=== PATIENT | female | born 1960 | race Caucasian/White ===

== ENCOUNTER 2016-04-14 20:29 | Inpatient (IN) | payer OTHER ==
[~2016-04-14] VITALS: Ht 157.5 cm; Wt 40.9 kg
[2016-04-14] MEDS ORDERED: HYDROCODONE/ACETAMOPHEN 5/325MG TAB PO STA (20:57)
--- NOTE | 2016-04-14 21:33 | DIAGNOSTIC IMAGING REPORT ---
CHEST ONE VIEW PORTABLE CLINICAL HISTORY: fall trauma. COMPARISON STUDY: No previous studies for comparison. FINDINGS: Prior median sternotomy and valve replacement. Diaphragms are smooth. Lungs are clear. IMPRESSION: No acute process. Electronically signed by: Vahid Lang M.D. 04/14/2016 9:31 PM
--- NOTE | 2016-04-14 21:34 | DIAGNOSTIC IMAGING REPORT ---
LEFT ELBOW MIN 3 VIEWS ROUTINE CLINICAL HISTORY: left elbow , fall COMPARISON: None. DISCUSSION: Nondisplaced cortical fracture proximal ulna. Joint effusion. No evidence for dislocation. There is no evidence for soft tissue swelling. IMPRESSION: Nondisplaced cortical fracture proximal ulna. Small joint effusion. No evidence of dislocation. Electronically signed by: Vahid Lang M.D. 04/14/2016 9:32 PM
--- NOTE | 2016-04-14 21:35 | DIAGNOSTIC IMAGING REPORT ---
LEFT HIP UNILATERAL 2 VIEWS CLINICAL HISTORY: fall, pain trauma. Pain. COMPARISON: None. DISCUSSION: Slightly impacted subcapital fracture left hip. No evidence dislocation. No evidence for acetabular protrusion. There is no evidence for soft tissue swelling. IMPRESSION: Slightly impacted subcapital fracture left hip. Electronically signed by: Vahid Lang M.D. 04/14/2016 9:34 PM
[2016-04-14] MEDS ORDERED: SODIUM CHLORIDE 0.9% 1000ML 1,000 ML IV STA (21:40)
[2016-04-14] MEDS ORDERED: EFAVTAB PO (21:40)
[2016-04-14] MEDS ORDERED: WARF1TAB6 PO (21:40)
[2016-04-14] MEDS ORDERED: WARF1TAB PO (21:43)
[2016-04-14] MEDS ORDERED: HYDROmorphone INJ 1 MG/ML SYR IV PRN (21:45)
[2016-04-14] MEDS ORDERED: NURSING VERBAL MED ORDER ONE (22:15)
[2016-04-14 22:54] LABS: BASO % 0.3 %; BASO ABS # 0.03 K/uL (0-0.2); COMPLETE YES; EOS % 0.1 %; HEMATOCRIT 37.5 % (37-47); IG% 0.3 %; LYMPH % 6.1 %; LYMPH ABS # 0.68 K/uL (1.2-3.4); MEAN CELL VOLUME 93.5 fL (80-100); MEAN CORPUSCULAR HEMOGLOBIN 31.2 pg (25-34); MEAN CORPUSCULAR HGB CONC 33.3 g/dl (32-36); MEAN PLATELET VOLUME 9.3 fL (7.4-10.4); MONO % 5.5 %; NEUT % 87.7 %; PLATELET COUNT 202 K/uL (130-400); RED BLOOD COUNT 4.01 M/uL (4.2-5.4); WHITE BLOOD COUNT 11.12 K/uL (4.8-10.8)
[2016-04-14 23:04] LABS: INR 1.2 (0.9-1.1); PARTIAL THROMBOPLASTIN RATIO 1.1; PROTHROMBIN TIME (PATIENT) 13.1 SECONDS (9.0-12.0)
[2016-04-14 23:15] LABS: BUN/CREATININE RATIO 14.7 (10-20); MAGNESIUM 2.4 mg/dl (1.8-2.4); POTASSIUM 3.8 mmol/L (3.5-5.1)
[2016-04-14 23:25] LABS: THYROID STIMULATING HORMONE 1.69 uIu/ml (0.300-4.500)
[2016-04-14] MEDS ORDERED: LORAZEPAM 2 MG/ML 1 ML VIAL IV PRN (23:45)
[2016-04-14] MEDS ORDERED: LACTATED RINGER'S 1000ML 1,000 ML IV ONE (23:45)
[2016-04-14] MEDS ORDERED: ONDANSETRON INJ 2 MG/ML 2 ML VIAL IV PRN (23:45)
[2016-04-14] MEDS ORDERED: hydrOXYzine HCL 10 MG TAB PO PRN (23:45)
[2016-04-14] MEDS ORDERED: HEPARIN 25000 UNIT/500 ML D5W ONE (23:54)
[2016-04-15] VITALS (7 sets, daily range): BP systolic 95–122; BP diastolic 59–75; PULSE 60–82; TEMP 36.5–37; O2SAT 96–100; Ht 157.5 cm; Wt 40.9 kg
[2016-04-15] MEDS ORDERED: HYDROmorphone INJ 0.5 MG/0.5 ML SYR ONE (00:18)
[2016-04-15] MEDS ORDERED: HEPARIN IV LOW DOSE NO BOLUS SCH (00:59)
--- NOTE | 2016-04-15 02:06 | EMERGENCY ROOM VISIT NOTE ---
History Report prepared by [place]: Richard Heaton Under the Supervision of: Dr. Elie Waters M.D. First contact with patient: 20:38 Chief Complaint: FALL Stated Complaint: FALL, LEFT HIP & LBOW PAIN History of Present Illness The patient is a 55 year old female who presents to the Emergency Room by EMS with complaints of constant left elbow and left hip pain s/p fall occurring just prior to arrival. She states that she fell down the stairs while holding her grand daughter. She did not hit her head. The patient states that movement worsens her pain. She has not been able to walk since the fall. She notes that she has a history of pelvic fractures occurring several years ago. The patient has a history of osteoporosis. Pt denies LOC, headache, visual changes, neck pain, chest pain, breathing difficulties, nausea, vomiting, abdominal pain, back pain, numbness, weakness, open wounds, active bleeding, or other complaints. Source of History: patient Onset: Just prior to arrival Position: elbow (left), other (left hip) Timing: constant Modifying Factors (Worsening): movement Associated Symptoms: No LOC Review of Systems See HPI for pertinent positives and negatives. A total of ten systems were reviewed and were otherwise negative. Past Medical & Surgical Medical Problems: (1) Osteoporosis (2) Pelvic fracture Surgical Problems: (1) S/P AVR (aortic valve replacement) Family History No pertinent family history stated. Social History Occupation Status: employed Current/Historical Medications Scheduled Tlbpacvob-Fwwfiqaxjmklx-Hiorhn (Atripla), 1 TAB PO DAILY Warfarin Sodium (Coumadin), 2 MG PO DAILY Allergies Coded Allergies: Morphine (Verified Allergy, Intermediate, hives, 04/14/16) Physical Exam Vital Signs Date Time Temp Pulse Resp B/P Pulse Ox O2 Delivery O2 Flow Rate FiO2 04/14/16 22:48 65 16 104/54 99 Room Air 04/14/16 20:38 36.8 51 20 83/49 100 Room Air Physical Exam GENERAL: Awake, alert, uncomfortable appearing, in mild distress HEAD: Normocephalic, atraumatic. No davidson sign. No raccoon eyes. EYES: Normal conjunctiva. PERRL. EARS: External ears normal. Right TM normal. Left TM normal. NOSE: Atraumatic OROPHARYNX: Lips, tongue, and mucosa unremarkable. No erythema or exudate. NECK: No tracheal deviation or JVD. No posterior midline tenderness. No step offs noted. RESPIRATORY: CTA bilaterally CARDIAC: Regular rate, normal rhythm. ABDOMEN: Inspection reveals no abnormalities. Soft, non distended. No tenderness to palpation. No hernias. BACK: No midline step offs or tenderness to palpation. Unremarkable. PELVIS: Stable to rock. SKIN: Normal. LYMPH: No adenopathy. MUSCULOSKELETAL: Abrasion over the right lower ribs. Contusion/abrasion with tenderness over the left elbow. ROM limited secondary to pain. Wrist is non- tender. Tenderness to palpation of the left hip. ROM limited to pain. Left foot , ankle and knee are non-tender. NEURO: GCS 15. Normal sensorium. No sensory or motor deficits noted. Medical Decision & Procedures ER Provider Diagnostic Interpretation: X-ray: Per my interpretation, radiologist review. LEFT HIP UNILATERAL 2 VIEWS DISCUSSION: Slightly impacted subcapital fracture left hip. No evidence dislocation. No evidence for acetabular protrusion. There is no evidence for soft tissue swelling. IMPRESSION: Slightly impacted subcapital fracture left hip. Electronically signed by: Vahid Lang M.D. LEFT ELBOW MIN 3 VIEWS ROUTINE DISCUSSION: Nondisplaced cortical fracture proximal ulna. Joint effusion. No evidence for dislocation. There is no evidence for soft tissue swelling. IMPRESSION: Nondisplaced cortical fracture proximal ulna. Small joint effusion. No evidence of dislocation. Electronically signed by: Vahid Lang M.D. CHEST ONE VIEW PORTABLE FINDINGS: Prior median sternotomy and valve replacement. Diaphragms are smooth. Lungs are clear. IMPRESSION: No acute process. Electronically signed by: Vahid Lang M.D. Laboratory Results 04/14/16 22:41 Red Blood Count 4.01, Mean Corpuscular Volume 93.5, Mean Corpuscular Hemoglobin 31.2, Mean Corpuscular Hemoglobin Concent 33.3, Mean Platelet Volume 9.3, Neutrophils (%) (Auto) 87.7, Lymphocytes (%) (Auto) 6.1, Monocytes (%) (Auto) 5.5, Eosinophils (%) (Auto) 0.1, Basophils (%) (Auto) 0.3, Neutrophils # (Auto) 9.76, Lymphocytes # (Auto) 0.68, Monocytes # (Auto) 0.61, Eosinophils # (Auto) 0.01, Basophils # (Auto) 0.03 1/2/17 22:41 Test 04/14/16 22:41 04/14/16 23:01 White Blood Count 11.12 K/uL (4.8-10.8) Red Blood Count 4.01 M/uL (4.2-5.4) Hemoglobin 12.5 g/dL (12.0-16.0) Hematocrit 37.5 % (37-47) Mean Corpuscular Volume 93.5 fL (80-100) Mean Corpuscular Hemoglobin 31.2 pg (25-34) Mean Corpuscular Hemoglobin Concent 33.3 g/dl (32-36) Platelet Count 202 K/uL (130-400) Mean Platelet Volume 9.3 fL (7.4-10.4) Neutrophils (%) (Auto) 87.7 % Lymphocytes (%) (Auto) 6.1 % Monocytes (%) (Auto) 5.5 % Eosinophils (%) (Auto) 0.1 % Basophils (%) (Auto) 0.3 % Neutrophils # (Auto) 9.76 K/uL (1.4-6.5) Lymphocytes # (Auto) 0.68 K/uL (1.2-3.4) Monocytes # (Auto) 0.61 K/uL (0.11-0.59) Eosinophils # (Auto) 0.01 K/uL (0-0.5) Basophils # (Auto) 0.03 K/uL (0-0.2) RDW Standard Deviation 50.1 fL (36.4-46.3) RDW Coefficient of Variation 14.5 % (11.5-14.5) Immature Granulocyte % (Auto) 0.3 % Immature Granulocyte # (Auto) 0.03 K/uL (0.00-0.02) Prothrombin Time 13.1 SECONDS (9.0-12.0) Prothromb Time International Ratio 1.2 (0.9-1.1) Activated Partial Thromboplast Time 27.6 SECONDS (21.0-31.0) Partial Thromboplastin Ratio 1.1 Anion Gap 8.0 mmol/L (3-11) Est Creatinine Clear Calc Drug Dose 45.0 ml/min Estimated GFR () 74.5 Estimated GFR (Non- 64.3 BUN/Creatinine Ratio 14.7 (10-20) Calcium Level 9.0 mg/dl (8.5-10.1) Magnesium Level 2.4 mg/dl (1.8-2.4) Total Bilirubin 0.3 mg/dl (0.2-1) Direct Bilirubin 0.1 mg/dl (0-0.2) Aspartate Amino Transf (AST/SGOT) 25 U/L (15-37) Alanine Aminotransferase (ALT/SGPT) 23 U/L (12-78) Alkaline Phosphatase 186 U/L (45-117) Total Protein 6.8 gm/dl (6.4-8.2) Albumin 3.6 gm/dl (3.4-5.0) 25-Hydroxy Vitamin D Total 9.1 ng/ml (30-100) Thyroid Stimulating Hormone (TSH) 1.690 uIu/ml (0.300-4.500) Lactic Acid Level 0.8 mmol/L (0.4-2.0) Laboratory results reviewed by me Medications Administered Medications (Trade) Dose Ordered Sig/[place] Route Start Time Stop Time Status Last Admin Dose Admin Acetaminophen/ Hydrocodone Bitart 1 tab 1 tab NOW STAT PO 04/14/16 20:57 04/14/16 20:59 DC 04/14/16 21:03 1 TAB Sodium Chloride (Nss 1000ml) 1,000 ml @ 125 mls/hr Q8H STAT IV 04/14/16 21:40 04/14/16 23:45 DC 04/14/16 21:40 125 MLS/HR Procedure SPLINTING: Indication: Elbow fracture The injured extremity was identified. The patient was prepped and measured for the placement of a posterior long-arm orthoglass splint. Splint applied in the standard fashion over a layer of webril and secured using an elastic bandage. Set into a position of function. Normal neurovascular status after placement verified. The patient tolerated the procedure well and the care of the splint was discussed with the patient. No complications. ECG Indication: other (fall) Rate (beats per minute): 57 Rhythm: sinus bradycardia Findings: Q waves (Inferior), no acute ischemic change, no ectopy ED Course 2054: The patient was evaluated in room C10. A complete history and physical exam was performed. 2056: Ordered [place] 5/325 Tab PO. 2139: Ordered NSS 1000 mL @ 125 mL/hr IV. 2145: Ordered Dilaudid Inj 0.5 mg IV. 2154: Upon reexamination, the patient was resting comfortably. I discussed the test results and treatment plan with her. The patient will be evaluated for further management. Medical Decision Triage Nursing notes reviewed and agree them. The patient's history was concerning for traumatic injury. Differential diagnosis: Etiologies such as fracture, dislocation, neurovascular compromise, compartment syndrome, soft tissue injury, as well as others were entertained. Physical examination: Consistent with an isolated hip injury. ER treatment provided: Oral [place] on reassessment the patient still had pain. IV lock Zofran 4mg IV Dilaudid 0.5 mg IV IV NPO Bedrest On reassessment the patient felt better. Diagnostics interpreted by me: ECG: No ischemia. The labs revealed a mild leukocytosis on CBC. Chemistry panel was unremarkable. The patient had a subtherapeutic INR. Imaging studies: Xrays as above. The patient has a hip fracture on the left side as well as the left elbow fracture. The patient was splinted. Consultation: A consultation was placed with [facility]. The case was discussed and diagnostics were reviewed. The patient was admitted for further treatment. The chart was completed utilizing [employer] Speech voice recognition software. Grammatical errors, random word insertions, pronoun errors, and incomplete sentences are an occasional consequence of this system due to software limitations, ambient noise, and hardware issues. Any formal questions or concerns about the content, text, or information contained within the body of this dictation should be directly addressed to the physician for clarification. Consults Time Called: 2149 Consulting Physician: Dr. Olea -Orthopedic Surgery Returned Call: 2154 Discussed the patient's case. The patient will be evaluated for further treatment and disposition. Impression Primary Impression: Closed left hip fracture Additional Impressions: Left elbow fracture, Contusion of left chest wall, Fall Scribe Attestation The scribe's documentation has been prepared under my direction and personally reviewed by me in its entirety. I confirm that the note above accurately reflects all work, treatment, procedures, and medical decision making performed by me. Departure Information Dispostion Being Evaluated By Surgeon Patient Instructions A Signature Page, My [facility] [place] [employer]
[2016-04-15] MEDS: HYDROCODONE/ACETAMOPHEN 5/325MG TAB ONE ×2 (02:08→02:09)
[2016-04-15] MEDS ORDERED: OXYCODONE/ACETAMINOPHEN 5-325 TAB ONE (02:11)
[2016-04-15] MEDS ORDERED: LORAZEPAM INJ 0.25 MG in SYRINGE 0.125 ML IV PRN (02:30)
[2016-04-15] MEDS ORDERED: HEPARIN 25,000 UNIT/500ML D5W 500 ML IV PRN (04:30)
[2016-04-15] MEDS ORDERED: CEFAZOLIN 1000MG/55 ML D5W IV SCH (06:00)
--- NOTE | 2016-04-15 06:20 | INTERNAL MEDICINE CONSULTATION ---
DATE OF CONSULTATION: 04/14/2016 PRIMARY CARE DOCTOR: Dr. Kar Daly from [place], [place]. Patient seen on the request of Dr. Olea for preop eval and medical management. HISTORY OF PRESENT ILLNESS: Medical history significant for HIV disease, hx CHF 2 to severe mitral regurgitation secondary to infective endocarditis sp MV repair with annuloplasty (07/2002 [facility]) sp mechanical MVR ([place], [place], 2008), osteoporosis per records. Patient is a resident of [place], [place] who has been in town for the holidays to be with her daughter and granddaughter. She was walking down the steps at her daughter's home holding her grandchild when her sweater got caught on the door lock. Patient fell down, landed on her L side. Px noted excruciating LUE and L hip pain. No chest pain, no shortness of breath, no head trauma. In the Emergency Room, the patient was found to have slightly impacted subcapital fracture, L hip and a nondisplaced cortical fracture proximal ulna with small joint effusion, no evidence of dislocation. Patient currently admitted under Orthopedic service. MEDICAL HISTORY: As above. Patient missed her Coumadin for about week last week. She claims she ran out of supplies. Has not seen her correctional sergeant, Dr. Malika Maldonado in [place], [place] for more than a year secondary to insurance issues. SURGERIES: Cholecystectomy, hysterectomy, mitral valve replacement, mechanical valve, jaw surgery. HOME MEDICATIONS: Include Coumadin, efavirenz. Patient prefers to take Coumadin (brand name) because "there shakira less blood draws with it," being a "hard stick" as she was. ALLERGIES: TO MORPHINE. FAMILY HISTORY: Heart disease. PERSONAL AND SOCIAL HISTORY: Nonsmoker, no ETOH intake, fast food restaurant employee. REVIEW OF SYSTEMS: As per HPI. All other ROS negative. FUNCTIONAL HISTORY: Denies chest pain, shortness of breath at rest or exertion. Able to do house work without problems. PHYSICAL EXAMINATION: VITAL SIGNS: Blood pressure was noted to be 104/70, pulse rate 60, RR 16, temperature 36.8, sats 99 on room air. GENERAL: Noted to be hyposthenic. No respiratory distress. Looks older for stated age. HEENT: [place] palpebral conjunctivae, dry mucosa. NECK: No JVD. Supple. CHEST: Clear to auscultation. HEART: Regular rate and rhythm. Mechanical click/murmur. ABDOMEN: Soft. EXTREMITIES: Sling on victorino LUE, tenderness L hip. NEUROLOGIC: No gross focality. LABORATORY DATA: Hemoglobin is 12.5, hematocrit 37.1, white cell count 11.12, platelets 202. Sodium 144, potassium 3.8, chloride 112, CO2 24, BUN 50, creatinine 1, glucose 106. Vitamin D was 9.1. INR was 1.2 7.2. Chest x-ray, prior median sternotomy, valve replacement, surgery done by Dr. Perez in [place]. EKG: Rate 55, sinus bradycardia, negative ischemia. ASSESSMENT: 1. Traumatic R hip fracture, R ulnar fracture known osteoporosis. 2. History of congestive heart failure as per records secondary to severe mitral regurgitation secondary to infective endocarditis sp complex repair, patch closure, perforation, MV annuloplasty at [facility] , 2002, sp mechanical MVR at a hospital in [place], [place] in 2008 on Coumadin questionable compliance. subtherapeutic INR px seems euvolemic 3. History of HIV disease, ongoing Atripla rx . 4. malnutrition, low BMI RECOMMENDATIONS: Recommend low-dose IV heparin for now for thromboembolic prevention in light of subtherapeutic INR while Coumadin on hold in preparation for surgery. TTE, Cardiology consult for preop eval Attempt to retrieve records from correctional sergeant's office in [place], Dr. Maldonado. Calcium-D supplementation. Facilitate HIV medication. Nutrition consult RE low BMI DVT prophylaxis, low-dose IV heparin for now while off Coumadin. Thank you very much for this consultation. Dr. Garcia will follow the patient's progress. Case discussed with Dr. Olea who is in agreement with the plan of care. ANGELLA
[2016-04-15 06:39] LABS: BASO % 0.4 %; BASO ABS # 0.03 K/uL (0-0.2); COMPLETE YES; EOS % 0.4 %; HEMATOCRIT 34.4 % (37-47); IG% 0.1 %; LYMPH % 9.4 %; LYMPH ABS # 0.64 K/uL (1.2-3.4); MEAN CORPUSCULAR HEMOGLOBIN 30.9 pg (25-34); MEAN CORPUSCULAR HGB CONC 32.8 g/dl (32-36); MEAN PLATELET VOLUME 9.3 fL (7.4-10.4); MONO % 8.1 %; NEUT % 81.6 %; PLATELET COUNT 177 K/uL (130-400); RED BLOOD COUNT 3.66 M/uL (4.2-5.4); WHITE BLOOD COUNT 6.79 K/uL (4.8-10.8)
[2016-04-15 06:52] LABS: PARTIAL THROMBOPLASTIN RATIO 1.5
[2016-04-15] MEDS ORDERED: HEPARIN IV BOLUS 3,000 UNIT in SYRINGE 0 ML IV ONE (07:30)
--- NOTE | 2016-04-15 08:31 | ECHOCARDIOGRAM REPORT ---
*NOTICE TO RECEIVING [employer] This information is strictly Confidential and protected under [place] law. [place] law prohibits you from making any further disclosure of this information unless further disclosure is expressly permitted by the written consent of the person to whom it pertains or is authorized by law. A general authorization for the release of medical or other information is not sufficient for this purpose. Hospital accepts no responsibility if the information is made available to any other person, INCLUDING THE PATIENT. Interpretation Summary * Name: SYD CHARLES Study Date: 04/15/2016 08:02 AM BP: 115/70 mmHg * Patient Location: [facility]\S\N286\S\2 HR: 69 * : 1960 (M/d/yyyy) Gender: Female Height: 62 in * Age: 55 yrs Ethnicity: CA Weight: 96 lb * Ordering Physician: William Cifuentes * Performed By: Maribell Cordova * * Reason For Study: CHF, MECH MVR, PREOP EVAL * BSA: 1.4 m2 * -- Conclusions -- * The left ventricle is normal in size. * Left ventricular systolic function is normal. * Ejection Fraction = 65-70%. * There is a mechanical mitral valve. * Prosthetic mitral valve peak and/or mean gradients are normal. * Doppler evidence of mitral regurgitation is normal for this valve. Procedure Details * A complete two-dimensional transthoracic echocardiogram was performed (2D, M-mode, Doppler and color flow Doppler). * The study was technically difficult. * There were technical limitations due to patient'spoor positioning Left Ventricle * The left ventricle is normal in size. * There is normal left ventricular wall thickness. * Ejection Fraction = 65-70%. * Left ventricular systolic function is normal. * The left ventricular wall motion is normal. Right Ventricle * The right ventricle is grossly normal size. * The right ventricular systolic function is normal. Atria * The left atrial size is normal. * Right atrial size is normal. * No ASD detected; PFO is not assessed. Mitral Valve * There is a mechanical mitral valve. * Prosthetic mitral valve peak and/or mean gradients are normal. * Doppler evidence of mitral regurgitation is normal for this valve. Tricuspid Valve * The tricuspid valve is not well visualized. * Significant tricuspid regurgitation is absent. Aortic Valve * The aortic valve is normal in structure and function. Pulmonic Valve * The pulmonic valve is not well visualized. * Trace pulmonic valvular regurgitation. Great Vessels * The aortic root and proximal ascending aorta are normal sized. Pericardium/Pleural * There is no pericardial effusion. MMode 2D Measurements and Calculations IVSd 0.75 cm IVSs 1.1 cm LVIDd 3.5 cm LVIDs 2.2 cm LVPWd 0.79 cm LVPWs 0.99 cm IVS/LVPW 0.95 FS 36.8 % EDV(Teich) 52.0 ml ESV(Teich) 16.8 ml EF(Teich) 67.7 % EDV(cubed) 44.1 ml ESV(cubed) 11.1 ml EF(cubed) 74.8 % % IVS thick 50.9 % % LVPW thick 24.9 % LV mass(C)d 72.8 grams LV mass(C)dI 52.0 grams/m\S\2 LV mass(C)s 60.1 grams LV mass(C)sI 43.0 grams/m\S\2 SV(Teich) 35.2 ml SI(Teich) 25.2 ml/m\S\2 SV(cubed) 33.0 ml SI(cubed) 23.5 ml/m\S\2 ACS 1.4 cm LA dimension 3.2 cm asc Aorta Diam 3.0 cm LVOT diam 1.8 cm LVOT area 2.6 cm\S\2 LVAd ap4 16.5 cm\S\2 LVLd ap4 5.2 cm EDV(MOD-sp4) 42.8 ml EDV(sp4-el) 44.6 ml LVAs ap4 8.7 cm\S\2 LVLs ap4 4.2 cm ESV(MOD-sp4) 14.9 ml ESV(sp4-el) 15.2 ml EF(MOD-sp4) 65.2 % EF(sp4-el) 66.0 % LVAd ap2 15.2 cm\S\2 LVLd ap2 5.6 cm EDV(MOD-sp2) 33.2 ml EDV(sp2-el) 34.8 ml LVAs ap2 8.6 cm\S\2 LVLs ap2 5.2 cm ESV(MOD-sp2) 12.1 ml ESV(sp2-el) 12.2 ml EF(MOD-sp2) 63.5 % EF(sp2-el) 65.0 % LVLd %diff 7.9 % EDV(MOD-bp) 39.6 ml LVLs %diff 17.8 % ESV(MOD-bp) 14.5 ml EF(MOD-bp) 63.4 % SV(MOD-sp4) 27.9 ml SI(MOD-sp4) 19.9 ml/m\S\2 SV(MOD-sp2) 21.1 ml SI(MOD-sp2) 15.1 ml/m\S\2 SV(MOD-bp) 25.1 ml SI(MOD-bp) 17.9 ml/m\S\2 SV(sp4-el) 29.4 ml SI(sp4-el) 21.0 ml/m\S\2 SV(sp2-el) 22.6 ml SI(sp2-el) 16.2 ml/m\S\2 Doppler Measurements and Calculations MV E max amna 145.6 cm/sec MV A max amna 77.1 cm/sec MV E/A 1.9 MV V2 max 172.6 cm/sec MV max PG 11.9 mmHg MV V2 mean 71.5 cm/sec MV mean PG 2.7 mmHg MV V2 VTI 49.5 cm MVA(VTI) 0.96 cm\S\2 MV dec time 0.44 sec Ao V2 max 130.3 cm/sec Ao max PG 6.8 mmHg Ao max PG (full) 3.1 mmHg CLAUDETTE(V,A) 1.9 cm\S\2 CLAUDETTE(V,D) 1.9 cm\S\2 LV V1 max PG 3.7 mmHg LV V1 mean PG 1.5 mmHg LV V1 max 95.8 cm/sec LV V1 mean 53.1 cm/sec LV V1 VTI 18.4 cm SV(LVOT) 47.8 ml SI(LVOT) 34.1 ml/m\S\2 PA V2 max 70.1 cm/sec PA max PG 2.0 mmHg PI end-d amna 70.6 cm/sec
[2016-04-15] MEDS: MULTIVITAMIN TAB PO SCH (09:03)
[2016-04-15] MEDS: CALCIUM 600MG + VIT D 400 IU TAB PO SCH ×2 (09:04→21:28)
[2016-04-15] MEDS: DOCUSATE SODIUM 100 MG CAP PO SCH ×2 (09:04→21:28)
--- NOTE | 2016-04-15 09:05 | CARDIOLOGY CONSULTATION ---
DATE OF CONSULTATION: 04/15/2016 REFERRING PHYSICIAN: Claudette roblero. REASON FOR CONSULTATION: Preoperative clearance for hip surgery. HISTORY OF PRESENT ILLNESS: This is a pleasant 55-year-old female who has a history This dictation was stopped prematurely. A second consult should be going through dictation and will be available soon. ANGELLA
[2016-04-15] MEDS: HYDROmorphone INJ 1 MG/ML SYR IV PRN (09:15)
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
[2016-04-15 13:32] LABS: PARTIAL THROMBOPLASTIN RATIO 1.4
[2016-04-15] MEDS ORDERED: FENTANYL CITRATE INJ 50 MCG/1 ML 2 ML VIAL ONE (13:59)
[2016-04-15] MEDS ORDERED: MIDAZOLAM HCL 1 MG/ML 2ML VIAL ONE (13:59)
--- NOTE | 2016-04-15 14:23 | History & Physical Bridge Note ---
H&P Re-Evaluation Bridge Note: I have examined the patient, reviewed the History & Physical and in the interval since the performance of the History & Physical I have noted the following changes of clinical significance: No changes noted
[2016-04-15] MEDS ORDERED: ONDANSETRON INJ 2 MG/ML 2 ML VIAL IV PRN ×2 (14:45→15:00)
[2016-04-15] MEDS ORDERED: ATROPINE SULFATE 0.1 MG/ML 5ML SYR IV PRN (14:45)
[2016-04-15] MEDS ORDERED: LIDOCAINE HCL 2% 2 ML VIAL (20MG/ML) ONE (14:46)
[2016-04-15] MEDS ORDERED: DEXAMETHASONE SOD INJ 4 MG/ML VIAL ONE (14:46)
[2016-04-15] MEDS ORDERED: PROPOFOL IV EMULSION 10 MG/ML 20 ML VIAL IV ONE (14:46)
[2016-04-15] MEDS ORDERED: ONDANSETRON INJ 2 MG/ML 2 ML VIAL ONE (14:46)
[2016-04-15] MEDS ORDERED: MAGNESIUM HYDROXIDE SUSP 30 ML UDC PO PRN (15:00)
[2016-04-15] MEDS ORDERED: BISACODYL 10 MG SUPP PR PRN (15:00)
[2016-04-15] MEDS ORDERED: SOD PHOSPHATE/SOD BIPHOSPHATE ENEMA 132 ML BTL PR PRN (15:00)
[2016-04-15] MEDS ORDERED: DiphenhydrAMINE HCL 50 MG/ML VIAL IV PRN (15:00)
--- NOTE | 2016-04-15 15:34 | DIAGNOSTIC IMAGING REPORT ---
INTRAOPERATIVE LEFT HIP 2 VIEWS CLINICAL HISTORY: Subcapital left hip fracture status post pinning COMPARISON STUDY: 04/14/2016 FLUOROSCOPY TIME: 53 seconds of fluoroscopic time was utilized. 2 intraoperative fluoroscopic spot images are provided. FINDINGS: There is evidence for internal fixation of the subcapital hip fracture with 3 cannulated screws. IMPRESSION: Cannulated screw fixation of a subcapital left hip fracture Electronically signed by: Ritchie Wharton M.D. 04/15/2016 3:32 PM
--- NOTE | 2016-04-15 15:51 | [facility] Post Operative Brief Note ---
Immediate Operative Summary Operative Date Apr 15, 2016. Pre-Operative Diagnosis 1. Minimally displaced subcapital left hip fracture. 2. Left nondisplaced olecranon fracture Post-Operative Diagnosis 1. Minimally displaced subcapital left hip fracture. 2. Left nondisplaced olecranon fracture Procedure(s) Performed 1. Left Hip Open Reduction Internal Fixation Subcapital Hip Fracture 2. Closed Treatment Left Olecranon Fracture Surgeon Dr. Sam Olea Communication Electronic Technician Surgeon(s) None Estimated Blood Loss 7cc Findings See Dict Specimens None per surgeon Drains None Anesthesia GLMA Complication(s) None Disposition Recovery Room / PACU
[2016-04-15] MEDS: HYDROmorphone INJ 2 MG/ML SYR/VIAL IV PRN ×4 (16:10→16:25)
--- NOTE | 2016-04-15 16:28 | OPERATIVE REPORT ---
DATE OF OPERATION: 04/15/2016 PREOPERATIVE DIAGNOSES: 1. Left minimally displaced subcapital hip fracture. 2. Left nondisplaced olecranon fracture. POSTOPERATIVE DIAGNOSIS: Same. PROCEDURE PERFORMED: 1. Open reduction internal fixation, left subcapital hip fracture. 2. Closed treatment left olecranon fracture with posterior splint and sling. SURGEON: Dr. Olea. BULK PLANT OPERATOR: None. ANESTHESIA: General LMA. SPECIMENS: None. DRAINS: None. COMPLICATIONS: None. BLOOD LOSS: 7 mL. PERTINENT HISTORY: This is a 55-year-old female who sustained a trip and fall while holding her grandchild. She protected the child; however, she landed on her left hip and her left elbow. She was able to ambulate, transferred to [facility]. Radiographs obtained of the elbow and of the hip, noting minimally displaced left subcapital hip fracture and a nondisplaced olecranon fracture. The patient was then admitted to the hospital, evaluated and cleared by the medical service and scheduled for surgery as indicated. All potential risks, benefits, complications, alternatives, rehab, potential for incomplete relief of symptoms, need for further surgery, DVT, PE, , persistent pain, swelling, scarring, weakness, neurovascular injury, wound complications, hardware failure, nonunion, malunion of bone and fracture were discussed with the patient. The patient decided to proceed with the procedure as indicated. ORIF with cannulated screws x3, left hip. PROCEDURE: The patient was taken to the operative suite, placed supine on the operating room table. The consent was reviewed and proper operative site was identified and then anesthesia was administered appropriately. Next, the patient was placed on the fracture table. The affected limb was placed to padded boot traction and the unaffected leg was placed in a well leg zuleta, flexed and abducted and slightly externally rotated. The well leg was then padded and protected. All other bony prominences were properly padded and protected. The post was padded in the peroneus. Next, the affected limb was placed under appropriate traction using the fracture table and initial reduction was performed under live fluoroscopic assistance. Next, the affected hip was then sterilely prepped and draped in usual fashion. Next, the greater trochanter of the hip was visualized under C-arm fluoroscopy. A 10 blade scalpel incision was made along the lateral aspect of the hip inferior to the greater trochanter. This incision was then carefully deepened through subcutaneous tissue. Meticulous hemostasis was achieved with electrocautery. Next, the iliotibial band was then incised with a 10 blade scalpel and appropriate bleeders were cauterized as well. Next, using live fluoroscopic assistance 7.3 mm cannulated guide pin was placed into the central aspect of the lateral femur directed into the inferior one-third of the femoral neck and head, inferior and central both confirmed with AP and lateral projections. Next, the cannulated guide was then used to place 2 further 7.3 mm cannulated screw guide pins superior anterior and superior posterior in relation to the inferiorly placed guide pin under AP and lateral live fluoroscopic assistance. Next, the guide pins were all noted to be within 5 mm of the subchondral bone on AP and lateral projections. This was then followed by measurement of the appropriate length for planned screw implantation and then the lateral cortex was drilled, this followed by countersinking of the planned screw sites followed by implantation of the 7.3 mm cannulated screws of appropriate length. This was confirmed under live fluoroscopic assistance. Next, a hand screwdriver was used to tighten the screws to fully seat the fracture and compress it confirmed using x-ray. Next, the guide pins were removed. The wound was copiously irrigated with sterile normal saline. Final x-rays obtained in both AP and lateral projections, followed by final irrigation with sterile normal saline, closure of the fascia with interrupted #1 Vicryl sutures, closure of the dermis with buried interrupted 2-0 Vicryl. The skin was then closed using skin svitlana. A sterile compressive dressing was applied. Closed treatment was performed of the left olecranon fracture of the elbow. The patient was in a posterior splint and she was maintained in a sling for closed treatment. The patient was then awakened and taken to recovery in stable condition. I attest to the content of the Intraoperative Record and any orders documented therein. Any exceptio ns are noted below.
--- NOTE | 2016-04-15 16:40 | Anesthesiology Progress Note ---
Anesthesia Post Op Note Date & Time Apr 15, 2016 at 16:39 Vital Signs Pain Intensity: 4 Vital Signs Past 12 Hours Date Time Temp Pulse Resp B/P Pulse Ox O2 Delivery O2 Flow Rate FiO2 04/15/16 16:23 74 12 04/15/16 16:23 71 12 106/62 100 04/15/16 16:18 71 14 04/15/16 16:18 71 14 112/55 100 04/15/16 16:13 73 15 123/60 100 04/15/16 16:13 71 15 04/15/16 16:08 83 17 124/52 100 04/15/16 16:08 86 17 04/15/16 16:03 74 16 04/15/16 16:03 73 16 112/65 100 04/15/16 15:58 80 13 122/66 100 04/15/16 15:58 82 13 04/15/16 15:54 110/68 04/15/16 15:53 79 15 04/15/16 15:53 87 15 83 04/15/16 15:48 90 15 119/64 100 04/15/16 15:48 36.2 90 16 114/62 99 Mask 10 04/15/16 15:48 90 15 04/15/16 13:47 Room Air 04/15/16 12:00 36.9 60 16 107/63 98 Room Air 04/15/16 09:03 37.0 60 18 100/59 96 Room Air 04/15/16 08:20 Room Air Notes Mental Status: alert / awake / arousable, participated in evaluation Pt Amnestic to Procedure: Yes Nausea / Vomiting: adequately controlled Pain: adequately controlled Airway Patency, RR, SpO2: stable & adequate BP & HR: stable & adequate Hydration State: stable & adequate Anesthetic Complications: no major complications apparent
[2016-04-15] MEDS ORDERED: BOOST PLUS VANILLA PO SCH ×2 (17:00)
[2016-04-15] MEDS: BOOST PLUS VANILLA PO SCH ×2 (17:49)
--- NOTE | 2016-04-15 18:21 | Hospitalist Progress Note ---
Hospitalist Progress Note Date of Service Apr 15, 2016. Subjective Pt evaluation today including: conversation w/ patient, physical exam, chart review, lab review, review of studies, review of inpatient medication list Patient is seen and examined at bedside. She seemed to be anxious but reports her left elbow and left hip pain is controlled. Denies any chest pain/SOB. Objective Vital Signs Date Time Temp Pulse Resp B/P Pulse Ox O2 Delivery O2 Flow Rate FiO2 04/15/16 17:45 79 18 122/75 98 Room Air 04/15/16 17:10 36.5 77 16 102/63 100 Nasal Cannula 2.0 04/15/16 16:54 71 10 95/58 100 04/15/16 16:54 69 10 04/15/16 16:49 74 12 100 04/15/16 16:49 72 12 04/15/16 16:48 105/61 04/15/16 16:44 69 11 04/15/16 16:44 69 11 100 04/15/16 16:43 105/60 04/15/16 16:40 36.3 81 12 108/62 100 Nasal Cannula 2 04/15/16 16:39 71 10 04/15/16 16:39 69 10 100 04/15/16 16:38 101/55 04/15/16 16:34 84 13 100 04/15/16 16:34 81 13 04/15/16 16:33 103/59 04/15/16 16:29 73 11 100 04/15/16 16:29 77 11 04/15/16 16:28 108/62 04/15/16 16:24 71 13 100 04/15/16 16:24 72 13 04/15/16 16:23 74 12 04/15/16 16:23 71 12 106/62 100 04/15/16 16:18 71 14 04/15/16 16:18 71 14 112/55 100 04/15/16 16:13 73 15 123/60 100 04/15/16 16:13 71 15 04/15/16 16:08 83 17 124/52 100 04/15/16 16:08 86 17 04/15/16 16:03 74 16 04/15/16 16:03 73 16 112/65 100 04/15/16 15:58 80 13 122/66 100 04/15/16 15:58 82 13 04/15/16 15:54 110/68 04/15/16 15:53 79 15 04/15/16 15:53 87 15 83 04/15/16 15:48 90 15 119/64 100 04/15/16 15:48 36.2 90 16 114/62 99 Mask 10 04/15/16 15:48 90 15 04/15/16 13:47 Room Air 04/15/16 12:00 36.9 60 16 107/63 98 Room Air 04/15/16 09:03 37.0 60 18 100/59 96 Room Air 04/15/16 08:20 Room Air 04/15/16 04:00 Room Air 04/15/16 01:53 37.0 69 18 115/70 100 Room Air 04/15/16 00:03 79 16 82/62 98 Room Air 04/14/16 22:48 65 16 104/54 99 Room Air 04/14/16 20:38 36.8 51 20 83/49 100 Room Air Physical Exam General Appearance: WD/WN, no apparent distress Eyes: normal inspection, PERRL, EOMI, sclerae normal, funduscopic exam normal ENT: normal ENT inspection, hearing grossly normal, TMs normal, pharynx normal Neck: supple, thyroid normal, no JVD, no carotid bruits, trachea midline Respiratory/Chest: chest non-tender, lungs clear, normal breath sounds, no respiratory distress, no accessory muscle use Cardiovascular: regular rate, rhythm, no edema, no gallop, no JVD, no murmur, + pertinent finding (Metallic S2) Abdomen: normal bowel sounds, non tender, soft, no organomegaly, no pulsatile mass Extremities: normal inspection, no pedal edema, no calf tenderness, normal capillary refill, + pertinent finding (Left elbow in sling, left hip mild tender ) 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, no motor/sensory deficits, alert, normal mood/affect, oriented x 3 Skin: normal color, warm/dry, no rash Lymphatic: no adenopathy Laboratory Results Last 24 Hours Test 04/14/16 22:41 04/14/16 23:01 04/15/16 06:08 04/15/16 13:05 White Blood Count 11.12 K/uL 6.79 K/uL Red Blood Count 4.01 M/uL 3.66 M/uL Hemoglobin 12.5 g/dL 11.3 g/dL Hematocrit 37.5 % 34.4 % Mean Corpuscular Volume 93.5 fL 94.0 fL Mean Corpuscular Hemoglobin 31.2 pg 30.9 pg Mean Corpuscular Hemoglobin Concent 33.3 g/dl 32.8 g/dl Platelet Count 202 K/uL 177 K/uL Mean Platelet Volume 9.3 fL 9.3 fL Neutrophils (%) (Auto) 87.7 % 81.6 % Lymphocytes (%) (Auto) 6.1 % 9.4 % Monocytes (%) (Auto) 5.5 % 8.1 % Eosinophils (%) (Auto) 0.1 % 0.4 % Basophils (%) (Auto) 0.3 % 0.4 % Neutrophils # (Auto) 9.76 K/uL 5.53 K/uL Lymphocytes # (Auto) 0.68 K/uL 0.64 K/uL Monocytes # (Auto) 0.61 K/uL 0.55 K/uL Eosinophils # (Auto) 0.01 K/uL 0.03 K/uL Basophils # (Auto) 0.03 K/uL 0.03 K/uL RDW Standard Deviation 50.1 fL 49.7 fL RDW Coefficient of Variation 14.5 % 14.4 % Immature Granulocyte % (Auto) 0.3 % 0.1 % Immature Granulocyte # (Auto) 0.03 K/uL 0.01 K/uL Prothrombin Time 13.1 SECONDS Prothromb Time International Ratio 1.2 Activated Partial Thromboplast Time 27.6 SECONDS 38.6 SECONDS 36.0 SECONDS Partial Thromboplastin Ratio 1.1 1.5 1.4 Sodium Level 144 mmol/L Potassium Level 3.8 mmol/L Chloride Level 112 mmol/L Carbon Dioxide Level 24 mmol/L Anion Gap 8.0 mmol/L Blood Urea Nitrogen 15 mg/dl Creatinine 1.00 mg/dl Est Creatinine Clear Calc Drug Dose 45.0 ml/min Estimated GFR () 74.5 Estimated GFR (Non- 64.3 BUN/Creatinine Ratio 14.7 Random Glucose 106 mg/dl Calcium Level 9.0 mg/dl Magnesium Level 2.4 mg/dl Total Bilirubin 0.3 mg/dl Direct Bilirubin 0.1 mg/dl Aspartate Amino Transf (AST/SGOT) 25 U/L Alanine Aminotransferase (ALT/SGPT) 23 U/L Alkaline Phosphatase 186 U/L Total Protein 6.8 gm/dl Albumin 3.6 gm/dl 25-Hydroxy Vitamin D Total 9.1 ng/ml Thyroid Stimulating Hormone (TSH) 1.690 uIu/ml Lactic Acid Level 0.8 mmol/L Diagnostic Results Left Hip X ray: Slightly impacted subcapital fracture left hip. Left Elbow X ray: Nondisplaced cortical fracture proximal ulna. Small joint effusion. No evidence of dislocation. CXR: No acute process. Assessment and Plan Left minimally displaced subcapital hip fracture and Left nondisplaced olecranon fracture H/O Osteoporosis After mechanical fall S/P ORIF of left hip fracture and closed treatment left olecranon fracture with posterior splint and sling. Orthopedics managing above condition Pain control Mechanical Mitral Valve: ECHO with MV which is functioning appropriately Continue IV Heparin and Coumadin Cardiology on board Obtain records from sow manager's office in [place], Dr. Maldonado. 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
[2016-04-15] MEDS: OXYCODONE/ACETAMINOPHEN 5-325 TAB PO PRN (19:24)
[2016-04-15] MEDS: CEFAZOLIN IV 1,000 MG in DEXTROSE 5% 50ML 50 ML IV SCH (21:29)
[2016-04-15] MEDS: TRAMADOL HCL 50 MG TAB PO PRN (23:15)
[2016-04-16] VITALS (8 sets, daily range): BP systolic 92–114; BP diastolic 47–67; PULSE 73–88; TEMP 36.3–37.5; O2SAT 95–98
[2016-04-16] MEDS: HYDROmorphone INJ 1 MG/ML SYR IV PRN ×3 (01:22→21:11)
[2016-04-16] MEDS: OXYCODONE/ACETAMINOPHEN 5-325 TAB PO PRN ×2 (04:58→14:39)
[2016-04-16] MEDS: CEFAZOLIN IV 1,000 MG in DEXTROSE 5% 50ML 50 ML IV SCH (05:56)
[2016-04-16 06:12] LABS: BASO % 0.3 %; BASO ABS # 0.02 K/uL (0-0.2); COMPLETE YES; EOS % 1.7 %; HEMATOCRIT 32.3 % (37-47); LYMPH % 14.2 %; LYMPH ABS # 0.93 K/uL (1.2-3.4); MEAN CELL VOLUME 94.2 fL (80-100); MEAN CORPUSCULAR HEMOGLOBIN 31.8 pg (25-34); MEAN CORPUSCULAR HGB CONC 33.7 g/dl (32-36); MEAN PLATELET VOLUME 9.2 fL (7.4-10.4); MONO % 11.9 %; NEUT % 71.9 %; PLATELET COUNT 178 K/uL (130-400); RED BLOOD COUNT 3.43 M/uL (4.2-5.4); WHITE BLOOD COUNT 6.56 K/uL (4.8-10.8)
[2016-04-16 06:47] LABS: BUN/CREATININE RATIO 10.4 (10-20); CALCIUM 8.7 mg/dl (8.5-10.1); CREATININE 1.1 mg/dl (0.60-1.20); POTASSIUM 3.7 mmol/L (3.5-5.1)
[2016-04-16] MEDS ORDERED: HEPARIN IV LOW DOSE NO BOLUS SCH (07:15)
[2016-04-16] MEDS: BOOST PLUS VANILLA PO SCH ×4 (08:00→17:45)
--- NOTE | 2016-04-16 08:41 | Anesthesiology Progress Note ---
Anesthesia Post Op Note Date & Time Apr 16, 2016 at 08:40 Vital Signs Vital Signs Past 12 Hours Date Time Temp Pulse Resp B/P Pulse Ox O2 Delivery O2 Flow Rate FiO2 04/16/16 07:45 37.5 73 20 101/59 98 Room Air 04/16/16 05:00 36.6 74 16 92/55 97 Room Air 04/16/16 04:00 Room Air 04/16/16 00:26 36.5 76 18 92/47 97 Room Air 04/16/16 00:00 Room Air Notes Mental Status: alert / awake / arousable, participated in evaluation Pt Amnestic to Procedure: Yes Nausea / Vomiting: adequately controlled Pain: adequately controlled Airway Patency, RR, SpO2: stable & adequate BP & HR: stable & adequate Hydration State: stable & adequate Anesthetic Complications: no major complications apparent
[2016-04-16] MEDS: MULTIVITAMIN TAB PO SCH (08:56)
[2016-04-16] MEDS: DOCUSATE SODIUM 100 MG CAP PO SCH ×2 (08:56→20:43)
[2016-04-16] MEDS: PANTOprazole SOD 40 MG TAB PO SCH (08:57)
[2016-04-16] MEDS: CALCIUM 600MG + VIT D 400 IU TAB PO SCH ×2 (08:57→20:43)
[2016-04-16] MEDS: HEPARIN 25,000 UNIT/500ML D5W 500 ML IV PRN ×2 (09:00→16:32)
[2016-04-16] MEDS ORDERED: MULTIVITAMIN TAB PO SCH (09:00)
[2016-04-16 09:07] LABS: INR 1.5 (0.9-1.1); PARTIAL THROMBOPLASTIN RATIO 1.5; PROTHROMBIN TIME (PATIENT) 16.2 SECONDS (9.0-12.0)
--- NOTE | 2016-04-16 10:19 | PROGRESS NOTE ---
DATE: 04/16/2016 FOLLOWUP VISIT SUBJECTIVE: The patient is a 55-year-old female who has a mechanical mitral valve that was implanted in 2008. She fell and fractured her left hip. She underwent an open fixation of her hip fracture yesterday. She has no complaints this morning. She is considering rehab options. She was started on intravenous heparin yesterday and has good hemostasis. I believe that we can restart her warfarin. At home, she was on a simple dose of 2 mg of warfarin daily 7 days a week. We will start her with 4 mg daily, and allow her INR to slowly drift up since she is in postoperative phase. The heparin should be continued until her INR is therapeutic. OBJECTIVE: GENERAL: She is alert and oriented in no acute distress. VITAL SIGNS: Blood pressure is 110/60, pulse is regular at 73. She is afebrile. HEENT: She is normocephalic. Pupils are equal and reactive to light. Extraocular muscles are intact bilaterally. NECK: The neck veins are flat. Carotids have good upstrokes bilaterally without bruits. Thyroid is nonpalpable. RESPIRATORY: Breath sounds equal bilaterally and clear to auscultation. CARDIOVASCULAR: Heart has a regular rhythm. There is a mechanical S1. PMI is in the midclavicular line. GASTROINTESTINAL: Abdomen is soft, nontender without organomegaly. EXTREMITIES: Free of edema, digital clubbing, or cyanosis. NEUROLOGIC: Grossly intact. SKIN: Warm to touch. LYMPH NODES: Negative to palpation. LABORATORY DATA: Potassium is 3.7, hemoglobin is 10.9, INR today is 1.5. IMPRESSION: 1. Status post left hip fracture. 2. Mechanical mitral valve. RECOMMENDATIONS: As outlined above, I think that her Coumadin should be restarted. She can receive 4 mg a day which is double her normal dose of 2 mg daily. Her INR, however, is 1.5 today and if she is therapeutic tomorrow she should receive warfarin 2 mg daily. The heparin can be discontinued when her INR is above 2. Otherwise, the patient is stable.
--- NOTE | 2016-04-16 14:18 | Progress Note ---
Internal Med Progress Note Date of Service: Apr 16, 2016. Provider Documentation: SUBJECTIVE: Patient is interviewed and examined at bedside. State shaving mild pain in her left hip and elbow. Denies any new symptoms. OBJECTIVE: Vital Signs-as noted below General Appearance: WD/WN, no apparent distress Eyes: normal inspection, PERRL, EOMI, sclerae normal, funduscopic exam normal ENT: normal ENT inspection, hearing grossly normal, TMs normal, pharynx normal Neck: supple, thyroid normal, no JVD, no carotid bruits, trachea midline Respiratory/Chest: chest non-tender, lungs clear, normal breath sounds, no respiratory distress, no accessory muscle use Cardiovascular: regular rate, rhythm, no edema, no gallop, no JVD, no murmur, + pertinent finding (Metallic S2) Abdomen: normal bowel sounds, non tender, soft, no organomegaly, no pulsatile mass Extremities: normal inspection, no pedal edema, no calf tenderness, normal capillary refill, + pertinent finding (Left elbow in sling, left hip mild tender ) 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 ASSESSMENT & PLAN: Left minimally displaced subcapital hip fracture and Left nondisplaced olecranon fracture H/O Osteoporosis Fracture after mechanical fall S/P ORIF of left hip fracture and closed treatment left olecranon fracture with posterior splint and sling. Orthopedics managing above condition Pain control, Bowel regimen to prevent constipation PT/OT Mechanical Mitral Valve: ECHO with MV which is functioning appropriately Appreciate Cardiology input Obtain records from airplane pilot chief's office in [place], Dr. Maldonado. 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 Stable, Currently no decompensation Vitamin D deficiency: Will start Vit D replacement H/O HIV disease Continue Atripla DVT px: On IV Heparin and Coumadin Vital Signs: Date Time Temp Pulse Resp B/P Pulse Ox O2 Delivery O2 Flow Rate FiO2 04/16/16 12:27 Room Air 04/16/16 11:30 36.9 86 18 114/63 95 Room Air 04/16/16 08:00 Room Air 04/16/16 07:45 37.5 73 20 101/59 98 Room Air 04/16/16 05:00 36.6 74 16 92/55 97 Room Air 04/16/16 04:00 Room Air 04/16/16 00:26 36.5 76 18 92/47 97 Room Air 04/16/16 00:00 Room Air 04/15/16 20:00 Room Air 04/15/16 19:53 36.6 82 18 95/60 99 Room Air 04/15/16 18:10 74 18 103/60 97 Room Air 04/15/16 17:45 79 18 122/75 98 Room Air 04/15/16 17:20 Room Air 04/15/16 17:10 36.5 77 16 102/63 100 Nasal Cannula 2.0 04/15/16 16:54 71 10 95/58 100 04/15/16 16:54 69 10 04/15/16 16:49 74 12 100 04/15/16 16:49 72 12 04/15/16 16:48 105/61 04/15/16 16:44 69 11 04/15/16 16:44 69 11 100 04/15/16 16:43 105/60 04/15/16 16:40 36.3 81 12 108/62 100 Nasal Cannula 2 04/15/16 16:39 71 10 04/15/16 16:39 69 10 100 04/15/16 16:38 101/55 04/15/16 16:34 84 13 100 04/15/16 16:34 81 13 04/15/16 16:33 103/59 04/15/16 16:29 73 11 100 04/15/16 16:29 77 11 04/15/16 16:28 108/62 04/15/16 16:24 71 13 100 04/15/16 16:24 72 13 04/15/16 16:23 74 12 04/15/16 16:23 71 12 106/62 100 04/15/16 16:18 71 14 04/15/16 16:18 71 14 112/55 100 04/15/16 16:13 73 15 123/60 100 04/15/16 16:13 71 15 04/15/16 16:08 83 17 124/52 100 04/15/16 16:08 86 17 04/15/16 16:03 74 16 04/15/16 16:03 73 16 112/65 100 04/15/16 15:58 80 13 122/66 100 04/15/16 15:58 82 13 04/15/16 15:54 110/68 04/15/16 15:53 79 15 04/15/16 15:53 87 15 83 04/15/16 15:48 90 15 119/64 100 04/15/16 15:48 36.2 90 16 114/62 99 Mask 10 04/15/16 15:48 90 15 Lab Results: Results Past 24 Hours Test 04/16/16 05:35 04/16/16 08:51 Range/Units White Blood Count 6.56 4.8-10.8 K/uL Red Blood Count 3.43 4.2-5.4 M/uL Hemoglobin 10.9 12.0-16.0 g/dL Hematocrit 32.3 37-47 % Mean Corpuscular Volume 94.2 80-100 fL Mean Corpuscular Hemoglobin 31.8 25-34 pg Mean Corpuscular Hemoglobin Concent 33.7 32-36 g/dl Platelet Count 178 130-400 K/uL Mean Platelet Volume 9.2 7.4-10.4 fL Neutrophils (%) (Auto) 71.9 % Lymphocytes (%) (Auto) 14.2 % Monocytes (%) (Auto) 11.9 % Eosinophils (%) (Auto) 1.7 % Basophils (%) (Auto) 0.3 % Neutrophils # (Auto) 4.72 1.4-6.5 K/uL Lymphocytes # (Auto) 0.93 1.2-3.4 K/uL Monocytes # (Auto) 0.78 0.11-0.59 K/uL Eosinophils # (Auto) 0.11 0-0.5 K/uL Basophils # (Auto) 0.02 0-0.2 K/uL RDW Standard Deviation 50.1 36.4-46.3 fL RDW Coefficient of Variation 14.6 11.5-14.5 % Immature Granulocyte % (Auto) 0.0 % Immature Granulocyte # (Auto) 0.00 0.00-0.02 K/uL Sodium Level 143 136-145 mmol/L Potassium Level 3.7 3.5-5.1 mmol/L Chloride Level 110 98-107 mmol/L Carbon Dioxide Level 24 21-32 mmol/L Anion Gap 9.0 3-11 mmol/L Blood Urea Nitrogen 11 7-18 mg/dl Creatinine 1.10 0.60-1.20 mg/dl Est Creatinine Clear Calc Drug Dose 46.8 ml/min Estimated GFR () 66.4 Estimated GFR (Non- 57.3 BUN/Creatinine Ratio 10.4 10-20 Random Glucose 107 70-99 mg/dl Calcium Level 8.7 8.5-10.1 mg/dl Prothrombin Time 16.2 9.0-12.0 SECONDS Prothromb Time International Ratio 1.5 0.9-1.1 Activated Partial Thromboplast Time 38.4 21.0-31.0 SECONDS Partial Thromboplastin Ratio 1.5
[2016-04-16 15:28] LABS: PARTIAL THROMBOPLASTIN RATIO 1.9
--- NOTE | 2016-04-16 15:58 | Orthopedic Progress Note ---
Orthopedic Progress Note Date of Service Apr 16, 2016. Subjective Post OP Day: 1 Reports: complaints (pain in the hip after having PT), feeling well, Denies: SOB , chest pain, nausea / vomiting Objective calves soft nontender, N/V intact, dressing C/D/I, A&O x3, toes mobile Left thigh with minimal swelling. Date Time Temp Pulse Resp B/P Pulse Ox O2 Delivery O2 Flow Rate FiO2 04/16/16 15:02 36.9 86 18 95 2.0 04/16/16 12:27 Room Air 04/16/16 11:30 36.9 86 18 114/63 95 Room Air 04/16/16 08:00 Room Air 04/16/16 07:45 37.5 73 20 101/59 98 Room Air 04/16/16 05:00 36.6 74 16 92/55 97 Room Air 04/16/16 04:00 Room Air 04/16/16 00:26 36.5 76 18 92/47 97 Room Air 04/16/16 00:00 Room Air 04/15/16 20:00 Room Air 04/15/16 19:53 36.6 82 18 95/60 99 Room Air 04/15/16 18:10 74 18 103/60 97 Room Air 04/15/16 17:45 79 18 122/75 98 Room Air 04/15/16 17:20 Room Air 04/15/16 17:10 36.5 77 16 102/63 100 Nasal Cannula 2.0 04/15/16 16:54 71 10 95/58 100 04/15/16 16:54 69 10 04/15/16 16:49 74 12 100 04/15/16 16:49 72 12 04/15/16 16:48 105/61 04/15/16 16:44 69 11 04/15/16 16:44 69 11 100 04/15/16 16:43 105/60 04/15/16 16:40 36.3 81 12 108/62 100 Nasal Cannula 2 04/15/16 16:39 71 10 04/15/16 16:39 69 10 100 04/15/16 16:38 101/55 04/15/16 16:34 84 13 100 04/15/16 16:34 81 13 04/15/16 16:33 103/59 04/15/16 16:29 73 11 100 04/15/16 16:29 77 11 04/15/16 16:28 108/62 04/15/16 16:24 71 13 100 04/15/16 16:24 72 13 04/15/16 16:23 74 12 04/15/16 16:23 71 12 106/62 100 04/15/16 16:18 71 14 04/15/16 16:18 71 14 112/55 100 04/15/16 16:13 73 15 123/60 100 04/15/16 16:13 71 15 04/15/16 16:08 83 17 124/52 100 04/15/16 16:08 86 17 04/15/16 16:03 74 16 04/15/16 16:03 73 16 112/65 100 04/15/16 15:58 80 13 122/66 100 04/15/16 15:58 82 13 04/15/16 15:54 110/68 04/15/16 15:53 79 15 04/15/16 15:53 87 15 83 Laboratory Results 24 Hours: Test 04/16/16 05:35 04/16/16 08:51 White Blood Count 6.56 K/uL Red Blood Count 3.43 M/uL Hemoglobin 10.9 g/dL Hematocrit 32.3 % Mean Corpuscular Volume 94.2 fL Mean Corpuscular Hemoglobin 31.8 pg Mean Corpuscular Hemoglobin Concent 33.7 g/dl Platelet Count 178 K/uL Mean Platelet Volume 9.2 fL Neutrophils (%) (Auto) 71.9 % Lymphocytes (%) (Auto) 14.2 % Monocytes (%) (Auto) 11.9 % Eosinophils (%) (Auto) 1.7 % Basophils (%) (Auto) 0.3 % Neutrophils # (Auto) 4.72 K/uL Lymphocytes # (Auto) 0.93 K/uL Monocytes # (Auto) 0.78 K/uL Eosinophils # (Auto) 0.11 K/uL Basophils # (Auto) 0.02 K/uL Prothromb Time International Ratio 1.5 Prothrombin Time 16.2 SECONDS Assessment & Plan Assessment: POD 1 s/p ORIF Left Subcapital Hip Fx with 7.3 Cannulated Screws. Nondisplaced Left Olecranon Fx - Splint/Sling H/O HIV Plan: PT/OT DVT Prophylaxis - Heparin/Coumadin Pain management - dc Percocet. Change to OxyIR q4h Inhouse Planning Pain Management: Percocet, Ultram, Dilaudid DVT Prophylaxis: TEDs, SCDs, Coumadin, Heparin Drip Discharge Planning Discharge Planning: uncertain
[2016-04-16] MEDS ORDERED: WARFARIN SOD 5 MG TAB PO SCH (16:00)
[2016-04-16] MEDS: WARFARIN SOD 4 MG TAB PO SCH (17:01)
[2016-04-16] MEDS: ERGOCALCIFEROL 50,000 INTER.UNIT CAP PO SCH (18:37)
[2016-04-16] MEDS: TENOFO PO SCH (19:18)
[2016-04-16] MEDS: EFAVIRENZ PO SCH (19:18)
[2016-04-16] MEDS: EMTRICITABINE PO SCH (19:18)
[2016-04-17 03:26] VITALS: BP 102/50; PULSE 75; TEMP 36.8; O2SAT 98
[2016-04-17] MEDS: HYDROmorphone INJ 1 MG/ML SYR IV PRN ×2 (03:49→22:06)
[2016-04-17 06:03] LABS: BASO % 0.6 %; BASO ABS # 0.04 K/uL (0-0.2); COMPLETE YES; EOS % 1.6 %; HEMATOCRIT 35.2 % (37-47); IG% 0.2 %; LYMPH % 10.9 %; LYMPH ABS # 0.69 K/uL (1.2-3.4); MEAN CELL VOLUME 95.4 fL (80-100); MEAN CORPUSCULAR HGB CONC 33.5 g/dl (32-36); MEAN PLATELET VOLUME 9.2 fL (7.4-10.4); MONO % 10.6 %; NEUT % 76.1 %; PLATELET COUNT 192 K/uL (130-400); RED BLOOD COUNT 3.69 M/uL (4.2-5.4); WHITE BLOOD COUNT 6.34 K/uL (4.8-10.8)
[2016-04-17 06:27] LABS: INR 1.3 (0.9-1.1); PROTHROMBIN TIME (PATIENT) 13.5 SECONDS (9.0-12.0)
[2016-04-17 06:34] LABS: BUN/CREATININE RATIO 11.6 (10-20); CALCIUM 9.8 mg/dl (8.5-10.1); CREATININE 0.99 mg/dl (0.60-1.20); POTASSIUM 3.8 mmol/L (3.5-5.1)
[2016-04-17 07:16] VITALS: BP 94/55; PULSE 90; TEMP 36.7; O2SAT 97
[2016-04-17] MEDS: HEPARIN 25,000 UNIT/500ML D5W 500 ML IV PRN ×4 (07:18→23:05)
[2016-04-17] MEDS: MULTIVITAMIN TAB PO SCH (09:39)
[2016-04-17] MEDS: BOOST PLUS VANILLA PO SCH ×4 (09:39→17:45)
[2016-04-17] MEDS: PANTOprazole SOD 40 MG TAB PO SCH (09:40)
[2016-04-17] MEDS: CALCIUM 600MG + VIT D 400 IU TAB PO SCH ×2 (09:40→20:53)
[2016-04-17] MEDS: DOCUSATE SODIUM 100 MG CAP PO SCH ×2 (09:40→20:53)
--- NOTE | 2016-04-17 10:58 | PROGRESS NOTE ---
DATE: 04/17/2016 FOLLOWUP VISIT SUBJECTIVE: The patient is a 55-year-old female with a mechanical mitral valve, who fell and had a hip fracture that required an open fixation. The surgery went well. She was restarted on her warfarin yesterday and has been continued on heparin. Her INR yesterday was 1.5 and unfortunately today it is 1.3. I started her on twice her usual daily dose of warfarin, which is 2 mg a day. She is currently on 4 mg daily, and hopefully by tomorrow she will be closer to therapeutic. She has no complaints today. OBJECTIVE: GENERAL: She is alert and oriented in no acute distress. VITAL SIGNS: Blood pressure is 115/60, pulse is regular at 70. She is afebrile. HEENT: She is normocephalic. Pupils are equal and reactive to light. Extraocular muscles are intact bilaterally. NECK: The neck veins are flat. Carotids have good upstrokes bilaterally without bruits. Thyroid is nonpalpable. RESPIRATORY: Breath sounds equal bilaterally and clear to auscultation. CARDIOVASCULAR: Heart has a regular rhythm. There is a mechanical S1. No S3, S4. GASTROINTESTINAL: Abdomen is soft, nontender without organomegaly. EXTREMITIES: Free of edema, digit clubbing, or cyanosis. NEUROLOGIC: Grossly intact. SKIN: Warm to touch. LYMPH NODES: Negative to palpation. LABORATORY DATA: INR is 1.3. IMPRESSION: 1. Status post left hip fracture. 2. Mechanical mitral valve. RECOMMENDATIONS: As outlined above, the patient should remain on heparin until her INR is closer to therapeutic range. I would continue her with 4 mg of warfarin and switch her to 2 mg daily once her INR is elevated. MTDD
[2016-04-17] MEDS: OXYCODONE HCL IR 5 MG TAB (IMMEDIATE RELEASE) PO PRN (14:33)
[2016-04-17 15:30] VITALS: O2SAT 97
[2016-04-17] MEDS: TRAMADOL HCL 50 MG TAB PO PRN (15:42)
[2016-04-17 15:44] VITALS: BP 107/67; PULSE 78; TEMP 36.5; O2SAT 98
--- NOTE | 2016-04-17 15:46 | Orthopedic Progress Note ---
Orthopedic Progress Note Date of Service Apr 17, 2016. Subjective Post OP Day: 2 Reports: feeling well Additional Notes: Having some pain but knows that will be part of the process. Discussed her dc plans. Hoping to go home with her daughter. States that her daughter will be at school for approx 8 hours a day and then home the rest of the time. We talked about the fact that she will have to be ambulating better for her to go to her daughters house unless she was planning to use a WC. She ambulated 6 feet today in PT. Discussed the possible need for [facility]SN[facility]. Pt unsure. She does not want to go to a SNF. Explained to her that this would not be a SNF but a dedicated Rehab Facility. No complaints presently. Objective calves soft nontender, N/V intact, dressing C/D/I, A&O x3, toes mobile Date Time Temp Pulse Resp B/P Pulse Ox O2 Delivery O2 Flow Rate FiO2 04/17/16 07:50 Room Air 04/17/16 07:16 36.7 90 14 94/55 97 Room Air 04/17/16 03:26 36.8 75 16 102/50 98 Room Air 04/17/16 00:00 Room Air 04/16/16 22:58 36.8 80 18 104/66 98 Room Air Laboratory Results 24 Hours: Test 04/17/16 05:38 White Blood Count 6.34 K/uL Red Blood Count 3.69 M/uL Hemoglobin 11.8 g/dL Hematocrit 35.2 % Mean Corpuscular Volume 95.4 fL Mean Corpuscular Hemoglobin 32.0 pg Mean Corpuscular Hemoglobin Concent 33.5 g/dl Platelet Count 192 K/uL Mean Platelet Volume 9.2 fL Neutrophils (%) (Auto) 76.1 % Lymphocytes (%) (Auto) 10.9 % Monocytes (%) (Auto) 10.6 % Eosinophils (%) (Auto) 1.6 % Basophils (%) (Auto) 0.6 % Neutrophils # (Auto) 4.83 K/uL Lymphocytes # (Auto) 0.69 K/uL Monocytes # (Auto) 0.67 K/uL Eosinophils # (Auto) 0.10 K/uL Basophils # (Auto) 0.04 K/uL Prothromb Time International Ratio 1.3 Prothrombin Time 13.5 SECONDS Assessment & Plan Assessment: POD 2 s/p ORIF Left Subcapital Hip Fx with 7.3 Cannulated Screws. Nondisplaced Left Olecranon Fx - Splint/Sling H/O HIV Heart Valve Replacement on chronic Coumadin Plan: PT/OT - Will need to improve her ambulation before going home. DVT Prophylaxis - Heparin/Coumadin Pain management - dc Percocet. Change to OxyIR q4h We will see how she progresses with her PT. I'd prefer that she gain a little distance to her ambulation before going home, especially since she may be home alone for approx. 8 hours. Fortunately, we will likely have a few days to get her INR up and work on her PT. Inhouse Planning Pain Management: Ultram, Dilaudid, Oxy IR DVT Prophylaxis: TEDs, SCDs, Coumadin, Heparin Drip Discharge Planning Discharge Planning: uncertain
[2016-04-17] MEDS: WARFARIN SOD 4 MG TAB PO SCH (16:02)
[2016-04-17] MEDS: TENOFO PO SCH (17:42)
[2016-04-17] MEDS: EFAVIRENZ PO SCH (17:42)
[2016-04-17] MEDS: EMTRICITABINE PO SCH (17:42)
--- NOTE | 2016-04-17 18:20 | Progress Note ---
Internal Med Progress Note Date of Service: Apr 17, 2016. Provider Documentation: SUBJECTIVE: Patient is interviewed and examined at bedside. States pain at surgical site and left elbow is controlled. Also reports constipation. Denies any chest pain, SOB. OBJECTIVE: Vital Signs-as noted below General Appearance: WD/WN, no apparent distress Eyes: normal inspection, PERRL, EOMI, sclerae normal, funduscopic exam normal ENT: normal ENT inspection, hearing grossly normal, TMs normal, pharynx normal Neck: supple, thyroid normal, no JVD, no carotid bruits, trachea midline Respiratory/Chest: chest non-tender, lungs clear, normal breath sounds, no respiratory distress, no accessory muscle use Cardiovascular: regular rate, rhythm, no edema, no gallop, no JVD, no murmur, + pertinent finding (Metallic S2) Abdomen: normal bowel sounds, non tender, soft, no organomegaly, no pulsatile mass Extremities: normal inspection, no pedal edema, no calf tenderness, normal capillary refill, + pertinent finding (Left elbow in sling, left hip mild tender ) Neurologic/Psychiatric: doughnut maker II-XII nml as tested, no motor/sensory deficits, alert, normal mood/affect, oriented x 3 Skin: normal color, warm/dry, no rash Lymphatic: no adenopathy Lab data as noted below. ASSESSMENT & PLAN: Left minimally displaced subcapital hip fracture and Left nondisplaced olecranon fracture H/O Osteoporosis Fracture after mechanical fall S/P ORIF of left hip fracture and closed treatment left olecranon fracture with posterior splint and sling, POD # 2 Orthopedics managing above condition Pain control, Continue Bowel regimen for constipation, encourage ambulation PT/OT Mechanical Mitral Valve: ECHO with MV which is functioning appropriately Cardiology following Obtain records from podopediatrician's office in [place], Dr. Maldonado. 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 Stable, Currently no decompensation Vitamin D deficiency: Continue Vit D supplements H/O HIV disease Continue Atripla DVT px: On IV Heparin and Coumadin Vital Signs: Date Time Temp Pulse Resp B/P Pulse Ox O2 Delivery O2 Flow Rate FiO2 1/5/17 15:44 36.5 78 18 107/67 98 Room Air 04/17/16 15:30 97 Room Air 04/17/16 07:50 Room Air 04/17/16 07:16 36.7 90 14 94/55 97 Room Air 04/17/16 03:26 36.8 75 16 102/50 98 Room Air 04/17/16 00:00 Room Air 04/16/16 22:58 36.8 80 18 104/66 98 Room Air Lab Results: Results Past 24 Hours Test 04/17/16 05:38 Range/Units White Blood Count 6.34 4.8-10.8 K/uL Red Blood Count 3.69 4.2-5.4 M/uL Hemoglobin 11.8 12.0-16.0 g/dL Hematocrit 35.2 37-47 % Mean Corpuscular Volume 95.4 80-100 fL Mean Corpuscular Hemoglobin 32.0 25-34 pg Mean Corpuscular Hemoglobin Concent 33.5 32-36 g/dl Platelet Count 192 130-400 K/uL Mean Platelet Volume 9.2 7.4-10.4 fL Neutrophils (%) (Auto) 76.1 % Lymphocytes (%) (Auto) 10.9 % Monocytes (%) (Auto) 10.6 % Eosinophils (%) (Auto) 1.6 % Basophils (%) (Auto) 0.6 % Neutrophils # (Auto) 4.83 1.4-6.5 K/uL Lymphocytes # (Auto) 0.69 1.2-3.4 K/uL Monocytes # (Auto) 0.67 0.11-0.59 K/uL Eosinophils # (Auto) 0.10 0-0.5 K/uL Basophils # (Auto) 0.04 0-0.2 K/uL RDW Standard Deviation 50.5 36.4-46.3 fL RDW Coefficient of Variation 14.4 11.5-14.5 % Immature Granulocyte % (Auto) 0.2 % Immature Granulocyte # (Auto) 0.01 0.00-0.02 K/uL Prothrombin Time 13.5 9.0-12.0 SECONDS Prothromb Time International Ratio 1.3 0.9-1.1 Activated Partial Thromboplast Time 53.1 21.0-31.0 SECONDS Partial Thromboplastin Ratio 2.0 Sodium Level 141 136-145 mmol/L Potassium Level 3.8 3.5-5.1 mmol/L Chloride Level 108 98-107 mmol/L Carbon Dioxide Level 26 21-32 mmol/L Anion Gap 7.0 3-11 mmol/L Blood Urea Nitrogen 11 7-18 mg/dl Creatinine 0.99 0.60-1.20 mg/dl Est Creatinine Clear Calc Drug Dose 52.0 ml/min Estimated GFR () 75.4 Estimated GFR (Non- 65.1 BUN/Creatinine Ratio 11.6 10-20 Random Glucose 123 70-99 mg/dl Calcium Level 9.8 8.5-10.1 mg/dl
[2016-04-17 23:28] VITALS: BP 105/64; PULSE 74; TEMP 36.6; O2SAT 97
[2016-04-18] MEDS: TRAMADOL HCL 50 MG TAB PO PRN ×2 (00:51→19:45)
[2016-04-18 07:00] VITALS: BP 79/39; PULSE 69; TEMP 36.7; O2SAT 97
[2016-04-18 07:05] LABS: BASO % 0.8 %; BASO ABS # 0.04 K/uL (0-0.2); COMPLETE YES; EOS % 2.7 %; HEMATOCRIT 35.9 % (37-47); IG% 0.2 %; LYMPH % 15.2 %; MEAN CELL VOLUME 94.7 fL (80-100); MEAN CORPUSCULAR HEMOGLOBIN 30.6 pg (25-34); MEAN CORPUSCULAR HGB CONC 32.3 g/dl (32-36); MEAN PLATELET VOLUME 9.2 fL (7.4-10.4); MONO % 12.4 %; NEUT % 68.7 %; PLATELET COUNT 222 K/uL (130-400); RED BLOOD COUNT 3.79 M/uL (4.2-5.4); WHITE BLOOD COUNT 5.25 K/uL (4.8-10.8)
[2016-04-18] MEDS: HEPARIN 25,000 UNIT/500ML D5W 500 ML IV PRN ×2 (07:15→19:00)
[2016-04-18 07:23] LABS: INR 1.8 (0.9-1.1); PARTIAL THROMBOPLASTIN RATIO 2.3; PROTHROMBIN TIME (PATIENT) 19.2 SECONDS (9.0-12.0)
[2016-04-18 07:38] VITALS: BP 102/63
[2016-04-18] MEDS: MULTIVITAMIN TAB PO SCH (09:35)
[2016-04-18] MEDS: BOOST PLUS VANILLA PO SCH ×4 (09:35→17:45)
[2016-04-18] MEDS: CALCIUM 600MG + VIT D 400 IU TAB PO SCH ×2 (09:35→19:44)
[2016-04-18] MEDS: DOCUSATE SODIUM 100 MG CAP PO SCH ×2 (09:35→19:44)
[2016-04-18] MEDS: PANTOprazole SOD 40 MG TAB PO SCH (09:35)
--- NOTE | 2016-04-18 09:37 | PROGRESS NOTE ---
DATE: 04/18/2016 FOLLOWUP VISIT SUBJECTIVE: The patient is a 55-year-old with a history of mechanical mitral valve, who underwent an open fixation and repair of a hip fracture. The patient has been convalescing and doing well. Her INR today is 1.8. I think by tomorrow, her INR may be therapeutic. I would continue her current dosage of warfarin 4 mg daily as well as the IV heparin until her INR is above 2. INR for a mechanical valve in the mitral position is usually run at 2.5-3.5. Otherwise, she is doing well. OBJECTIVE: VITAL SIGNS: Blood pressure is 105/60 and pulse is regular at 70 beats per minute. She is afebrile. HEENT: She is normocephalic. Pupils are equal and reactive to light. Extraocular muscles are intact bilaterally. NECK: The neck veins are flat. Carotids have good upstrokes bilaterally without bruits. Thyroid is nonpalpable. RESPIRATORY: Breath sounds equal bilaterally and clear to auscultation. CARDIOVASCULAR: Heart has a regular rhythm. Normal S1 and S2. No S3 or S4. No cardiac rubs or murmurs. GASTROINTESTINAL: Abdomen is soft and nontender without organomegaly. EXTREMITIES: Free of edema, digit clubbing, or cyanosis. NEUROLOGIC: Grossly intact. SKIN: Warm to touch. LYMPH NODES: Negative to palpation. IMPRESSION: 1. Status post left hip fracture with an open repair. 2. Mechanical mitral valve. RECOMMENDATIONS: As outlined above, the patient will continue her current dose of warfarin and should remain on heparin until her INR is therapeutic. I suspect since her INR is 1.8 today, it should be in a therapeutic range by tomorrow and hopefully then, we could do some discharge planning. [facility] CAN[facility]ER CENTERKaitlin
--- NOTE | 2016-04-18 10:19 | Orthopedic Progress Note ---
Orthopedic Progress Note Date of Service Apr 18, 2016. Subjective Post OP Day: 3 Reports: feeling well, Denies: SOB, chest pain, light headedness, nausea / vomiting Additional Notes: Ambulating in the hallway with PT. States she's feeling a little stiff this AM but otherwise feels well. Doing better with her ambulation today and able to maintain her WB status per PT. Objective calves soft nontender, N/V intact, splint C/D/I (LUE), dressing C/D/I, A&O x3, toes mobile Date Time Temp Pulse Resp B/P Pulse Ox O2 Delivery O2 Flow Rate FiO2 04/18/16 07:38 102/63 04/18/16 07:00 36.7 69 16 79/39 97 Room Air 04/17/16 23:35 Room Air 04/17/16 23:28 36.6 74 16 105/64 97 Room Air 04/17/16 15:44 36.5 78 18 107/67 98 Room Air 04/17/16 15:30 97 Room Air Laboratory Results 24 Hours: Test 04/18/16 06:45 White Blood Count 5.25 K/uL Red Blood Count 3.79 M/uL Hemoglobin 11.6 g/dL Hematocrit 35.9 % Mean Corpuscular Volume 94.7 fL Mean Corpuscular Hemoglobin 30.6 pg Mean Corpuscular Hemoglobin Concent 32.3 g/dl Platelet Count 222 K/uL Mean Platelet Volume 9.2 fL Neutrophils (%) (Auto) 68.7 % Lymphocytes (%) (Auto) 15.2 % Monocytes (%) (Auto) 12.4 % Eosinophils (%) (Auto) 2.7 % Basophils (%) (Auto) 0.8 % Neutrophils # (Auto) 3.61 K/uL Lymphocytes # (Auto) 0.80 K/uL Monocytes # (Auto) 0.65 K/uL Eosinophils # (Auto) 0.14 K/uL Basophils # (Auto) 0.04 K/uL Prothromb Time International Ratio 1.8 Prothrombin Time 19.2 SECONDS Assessment & Plan Assessment: POD 3 s/p ORIF Left Subcapital Hip Fx with 7.3 Cannulated Screws. Nondisplaced Left Olecranon Fx - Splint/Sling H/O HIV Heart Valve Replacement on chronic Coumadin Plan: PT/OT - TTWB; Ambulation improving. DVT Prophylaxis - Heparin/Coumadin Pain management - dc Percocet. Change to OxyIR q4h Continue to work on her ambulation. Waiting for INR to be therapeutic. Likely for dc tomorrow to home with Home Health Services if INR therapeutic. Inhouse Planning Pain Management: Ultram, Dilaudid, Oxy IR DVT Prophylaxis: TEDs, SCDs, Coumadin, Heparin Drip Discharge Planning Discharge Planning: uncertain
[2016-04-18 10:49] LABS: BUN/CREATININE RATIO 16.2 (10-20); CALCIUM 9.6 mg/dl (8.5-10.1); POTASSIUM 3.8 mmol/L (3.5-5.1)
[2016-04-18] MEDS: OXYCODONE HCL IR 5 MG TAB (IMMEDIATE RELEASE) PO PRN ×2 (10:58→16:40)
[2016-04-18 15:01] VITALS: BP 97/57; PULSE 81; TEMP 36.5; O2SAT 97
[2016-04-18] MEDS: WARFARIN SOD 4 MG TAB PO SCH (16:31)
[2016-04-18] MEDS: EFAVIRENZ PO SCH (16:32)
[2016-04-18] MEDS: EMTRICITABINE PO SCH (16:32)
[2016-04-18] MEDS: TENOFO PO SCH (16:32)
--- NOTE | 2016-04-18 17:12 | Progress Note ---
Internal Med Progress Note Date of Service: Apr 18, 2016. Provider Documentation: SUBJECTIVE: Patient is interviewed and examined at bedside. She states her pain is controlled. Denies any chest pain, SOB. OBJECTIVE: Vital Signs-as noted below General Appearance: WD/WN, no apparent distress Eyes: normal inspection, PERRL, EOMI, sclerae normal, funduscopic exam normal ENT: normal ENT inspection, hearing grossly normal, TMs normal, pharynx normal Neck: supple, thyroid normal, no JVD, no carotid bruits, trachea midline Respiratory/Chest: chest non-tender, lungs clear, normal breath sounds, no respiratory distress, no accessory muscle use Cardiovascular: regular rate, rhythm, no edema, no gallop, no JVD, no murmur, + pertinent finding (Metallic S2) Abdomen: normal bowel sounds, non tender, soft, no organomegaly, no pulsatile mass Extremities: normal inspection, no pedal edema, no calf tenderness, normal capillary refill, + pertinent finding (Left elbow in sling, left hip mild tender ) Neurologic/Psychiatric: take up supervisor II-XII nml as tested, no motor/sensory deficits, alert, normal mood/affect, oriented x 3 Skin: normal color, warm/dry, no rash Lymphatic: no adenopathy Lab data as noted below. ASSESSMENT & PLAN: Left minimally displaced subcapital hip fracture and Left nondisplaced olecranon fracture H/O Osteoporosis Fracture after mechanical fall S/P ORIF of left hip fracture and closed treatment left olecranon fracture with posterior splint and sling, POD # 3 Orthopedics managing above condition Pain control, Continue Bowel regimen for constipation, encourage ambulation PT/OT Patient refuses rehab placement Mechanical Mitral Valve: ECHO with MV which is functioning appropriately Cardiology following Obtain records from senior sharepoint developer's office in [place], Dr. Maldonado. 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 Stable, Currently no decompensation Vitamin D deficiency: Continue Vit D supplements H/O HIV disease Continue Atripla DVT px: On IV Heparin and Coumadin Disposition: Likely planned to be discharged tomorrow if INR is therapeutic Vital Signs: Date Time Temp Pulse Resp B/P Pulse Ox O2 Delivery O2 Flow Rate FiO2 04/18/16 15:01 36.5 81 18 97/57 97 Room Air 04/18/16 08:00 Room Air 04/18/16 07:38 102/63 04/18/16 07:00 36.7 69 16 79/39 97 Room Air 04/17/16 23:35 Room Air 04/17/16 23:28 36.6 74 16 105/64 97 Room Air Lab Results: Results Past 24 Hours Test 04/18/16 06:45 04/18/16 09:50 Range/Units White Blood Count 5.25 4.8-10.8 K/uL Red Blood Count 3.79 4.2-5.4 M/uL Hemoglobin 11.6 12.0-16.0 g/dL Hematocrit 35.9 37-47 % Mean Corpuscular Volume 94.7 80-100 fL Mean Corpuscular Hemoglobin 30.6 25-34 pg Mean Corpuscular Hemoglobin Concent 32.3 32-36 g/dl Platelet Count 222 130-400 K/uL Mean Platelet Volume 9.2 7.4-10.4 fL Neutrophils (%) (Auto) 68.7 % Lymphocytes (%) (Auto) 15.2 % Monocytes (%) (Auto) 12.4 % Eosinophils (%) (Auto) 2.7 % Basophils (%) (Auto) 0.8 % Neutrophils # (Auto) 3.61 1.4-6.5 K/uL Lymphocytes # (Auto) 0.80 1.2-3.4 K/uL Monocytes # (Auto) 0.65 0.11-0.59 K/uL Eosinophils # (Auto) 0.14 0-0.5 K/uL Basophils # (Auto) 0.04 0-0.2 K/uL RDW Standard Deviation 49.8 36.4-46.3 fL RDW Coefficient of Variation 14.4 11.5-14.5 % Immature Granulocyte % (Auto) 0.2 % Immature Granulocyte # (Auto) 0.01 0.00-0.02 K/uL Prothrombin Time 19.2 9.0-12.0 SECONDS Prothromb Time International Ratio 1.8 0.9-1.1 Activated Partial Thromboplast Time 60.1 21.0-31.0 SECONDS Partial Thromboplastin Ratio 2.3 Sodium Level 140 136-145 mmol/L Potassium Level 3.8 3.5-5.1 mmol/L Chloride Level 107 98-107 mmol/L Carbon Dioxide Level 25 21-32 mmol/L Anion Gap 8.0 3-11 mmol/L Blood Urea Nitrogen 16 7-18 mg/dl Creatinine 1.00 0.60-1.20 mg/dl Est Creatinine Clear Calc Drug Dose 51.5 ml/min Estimated GFR () 74.5 Estimated GFR (Non- 64.3 BUN/Creatinine Ratio 16.2 10-20 Random Glucose 139 70-99 mg/dl Calcium Level 9.6 8.5-10.1 mg/dl
[2016-04-18] MEDS: SENNA 8.6 MG TAB PO SCH (19:44)
[2016-04-18] MEDS ORDERED: ACETAMINOPHEN 325 MG TAB PO STA (21:54)
[2016-04-18] MEDS ORDERED: ACETAMINOPHEN 325 MG TAB PO PRN (22:00)
[2016-04-18] MEDS ORDERED: ACETAMINOPHEN 325 MG TAB ONE (22:08)
[2016-04-18 23:03] VITALS: BP 100/62; PULSE 78; TEMP 36.6; O2SAT 98
[2016-04-19 03:44] VITALS: BP 100/63; PULSE 74; TEMP 36.6; O2SAT 98
[2016-04-19 07:02] LABS: BASO % 1.5 %; BASO ABS # 0.07 K/uL (0-0.2); COMPLETE YES; HEMATOCRIT 33.8 % (37-47); IG% 0.4 %; LYMPH % 22.5 %; LYMPH ABS # 1.08 K/uL (1.2-3.4); MEAN CELL VOLUME 94.2 fL (80-100); MEAN CORPUSCULAR HEMOGLOBIN 30.9 pg (25-34); MEAN CORPUSCULAR HGB CONC 32.8 g/dl (32-36); MEAN PLATELET VOLUME 9.5 fL (7.4-10.4); MONO % 12.1 %; NEUT % 59.5 %; PLATELET COUNT 248 K/uL (130-400); RED BLOOD COUNT 3.59 M/uL (4.2-5.4); WHITE BLOOD COUNT 4.79 K/uL (4.8-10.8)
[2016-04-19 07:09] VITALS: BP 104/64; PULSE 74; TEMP 36.6; O2SAT 97
[2016-04-19 07:21] LABS: INR 2.1 (0.9-1.1); PARTIAL THROMBOPLASTIN RATIO 2.5; PROTHROMBIN TIME (PATIENT) 22.8 SECONDS (9.0-12.0)
[2016-04-19] MEDS ORDERED: NURSING VERBAL MED ORDER ONE (08:15)
[2016-04-19] MEDS: BOOST PLUS VANILLA PO SCH ×4 (08:30→17:33)
[2016-04-19] MEDS: CALCIUM 600MG + VIT D 400 IU TAB PO SCH ×2 (09:01→20:44)
[2016-04-19] MEDS: MULTIVITAMIN TAB PO SCH (09:01)
[2016-04-19] MEDS: DOCUSATE SODIUM 100 MG CAP PO SCH ×2 (09:01→20:43)
[2016-04-19] MEDS: PANTOprazole SOD 40 MG TAB PO SCH (09:01)
--- NOTE | 2016-04-19 09:31 | Orthopedic Progress Note ---
Orthopedic Progress Note Date of Service Apr 19, 2016. Subjective Post OP Day: 4 Reports: feeling well, pain controlled w PO medications, Denies: SOB, calf pain , chest pain, complaints, light headedness, nausea / vomiting Objective calves soft nontender, N/V intact, dressing C/D/I, incision C/D/I, A&O x3 elbow splint intact Date Time Temp Pulse Resp B/P Pulse Ox O2 Delivery O2 Flow Rate FiO2 04/19/16 07:09 36.6 74 18 104/64 97 Room Air 04/19/16 03:44 36.6 74 18 100/63 98 Room Air 04/18/16 23:03 36.6 78 18 100/62 98 Room Air 04/18/16 19:45 Room Air 04/18/16 15:01 36.5 81 18 97/57 97 Room Air Laboratory Results 24 Hours: Test 04/19/16 05:50 White Blood Count 4.79 K/uL Red Blood Count 3.59 M/uL Hemoglobin 11.1 g/dL Hematocrit 33.8 % Mean Corpuscular Volume 94.2 fL Mean Corpuscular Hemoglobin 30.9 pg Mean Corpuscular Hemoglobin Concent 32.8 g/dl Platelet Count 248 K/uL Mean Platelet Volume 9.5 fL Neutrophils (%) (Auto) 59.5 % Lymphocytes (%) (Auto) 22.5 % Monocytes (%) (Auto) 12.1 % Eosinophils (%) (Auto) 4.0 % Basophils (%) (Auto) 1.5 % Neutrophils # (Auto) 2.85 K/uL Lymphocytes # (Auto) 1.08 K/uL Monocytes # (Auto) 0.58 K/uL Eosinophils # (Auto) 0.19 K/uL Basophils # (Auto) 0.07 K/uL Prothromb Time International Ratio 2.1 Prothrombin Time 22.8 SECONDS Assessment & Plan Assessment: POD 4 s/p ORIF Left Subcapital Hip Fx with 7.3 Cannulated Screws. Nondisplaced Left Olecranon Fx - Splint/Sling H/O HIV Heart Valve Replacement on chronic Coumadin Plan: PT/OT - TTWB; Ambulation improving. DVT Prophylaxis - Heparin/Coumadin Pain management - dc Percocet. Change to OxyIR q4h INR now therapeutic, will discuss w/ SS poss HSNVR placement. Discharge Planning Discharge Planning: uncertain
--- NOTE | 2016-04-19 09:36 | Discharge Instructions ---
Discharge Instructions Admission Reason for Admission: Slightly Impacted Subcapital Lft Hip Fx Discharge Discharge Diagnosis / Problem: 1. Left Hip Open Reduction Internal Fixation Subcapital Hip Fracture Discharge Goals Goal(s): Decrease discomfort, Improve function, Increase independence Activity Recommendations Activity Level: Up Ad Autumn Therapies: Physical Therapy, Weight Bearing Status (TTWB) Weightbearing Status: Left toe touch . Additional Information Patient informed of condition: Yes Advance Directives: Yes DNR: No Level of Care: Acute Rehab Communicable Disease: Yes Prognosis: Stable Instructions / Follow-Up Instructions / Follow-Up [facility] DISCHARGE INSTRUCTIONS: HIP FRACTURE SELF CARE INSTRUCTIONS: A. You are to ambulate with a walker or crutches for approximately 6 weeks. B. You are TOE TOUCH WEIGHT BEARING on your operative lower extremity for at least 6 weeks. C. Wear low heeled shoes with non-slip soles D. Be sure that your floors are free of things that could trip you throw rugs, electrical cords, and small objects. Avoid wet and waxed floors, especially with crutches/walker/cane. E. Try to walk several times a day with rest periods between. F. You may shower 48 hours after surgery and get the incision area wet, but DO NOT soak or submerge incision area in water. (No baths, swimming pools, hot tubs ) You CAN shower with this on. If incision is leaking through the dressing, please call the office . H. Do NOT apply soap or any ointment/lotions directly over incision. I. You may use ice as needed to operative site. SPECIAL CARE INSTRUCTIONS: VERY IMPORTANT TO READ AND REVIEW A. You may be at risk for phlebitis or blood clots. a. Wear surgical stockings (KARINA hose) for 2 weeks after surgery to improve circulation and reduce swelling. b. If you are on Coumadin- you will have daily/weekly blood work to monitor your levels. This will be done by either your family physician/ grain merchandising manager (if you are on Coumadin chronically) versus your orthopedic surgeon. Expect a phone call the day of or the day after your blood work is drawn to adjust your dose accordingly. B. There are a few signs you need to watch for after you are home. Call [facility] at [phone] if you experience any of the following: a. If you have a temperature of 101 degrees or higher. b. Sudden increase in pain in your hip not relieved by rest or pain medication. c. Any fluid or drainage from the incision; redness of the incision. d. Shortness of breath or chest pain. B. Please call [facility] at [phone] if you have any questions or concerns about your operation or recovery. C. Call your physician if: a. Temperature is greater than 101 degrees (F). b. Pain is not relieved by prescribed pain medications. c. Increase drainage or redness from incision. d. Unanswered questions or concerns. D. Pain Medication: a. You will be prescribed pain medication upon discharge that should last till your first post-operative appointment. b. If you experience nausea and/or skin rash, discontinue this medication and contact our office for an alternative medication. c. Caution- narcotic pain medication can cause constipation. E. Remain in your splint at all times left upper extremity FOLLOW UP VISIT: Please call [facility] at [phone] to schedule a follow up appointment 10-14 days from the date of your surgery date. Current Hospital Diet Patient's current hospital diet: Regular Diet Discharge Diet Recommended Diet: Regular Diet Procedures Procedures Performed: 1. Left Hip Open Reduction Internal Fixation Subcapital Hip Fracture 2. Closed Treatment Left Olecranon Fracture Pending Studies Studies pending at discharge: no Physician Orders On Transfer Dressing Changes: dressing changes left hip as needed remain in splint left upper extremity Medical Emergencies . Who to Call and When: Medical Emergencies: If at any time you feel your situation is an emergency, please call 911 immediately. . Non-Emergent Contact Non-Emergency issues call your: Primary Care Provider, Surgeon . . "Provider Documentation" section prepared by Vahid Garcia. Core Measure Problem Core Measures: None
[2016-04-19] MEDS ORDERED: ULT50X PO (09:40)
[2016-04-19] MEDS ORDERED: RXC5 PO (09:40)
[2016-04-19] MEDS ORDERED: CLC100 PO (09:40)
--- NOTE | 2016-04-19 10:51 | Cardiology Follow-Up ---
Subjective General Date of Service: Apr 19, 2016. Chief Complaint: follow up mechanical mitral valve Pt evaluation today including: conversation w/ patient, physical exam History of Present Illness The patient is a 55 year old female seen in follow up. Patient sitting in bed without complaint. Denies pain. She is not on telemetry. Her heparin infusion was discontinued prior to my arrival. Allergies Coded Allergies: Morphine (Verified Allergy, Intermediate, hives, 04/14/16) Social History Smoking Status: Never Smoker Hx Tobacco Use In Past Year?: No Hx Alcohol Use - Type And Amou: No Hx Substance Use - Type And Am: No Physical Exam Vital Signs Last Vital Signs Documentation Date Time Temp Pulse Resp B/P Pulse Ox O2 Delivery O2 Flow Rate FiO2 04/19/16 08:06 Room Air 04/19/16 07:09 36.6 74 18 104/64 97 04/16/16 15:02 2.0 Physical Exam Constitutional: Level of Distress: NAD Neck: supple Lungs: Auscultation: pertinent finding (Clear to ausculation) Cardiovascular: Heart Auscultation: RRR, pertinent finding (crisp prosthetic valve sounds noted) Extremities: no edema Neurologic: Gait & Station: pertinent finding (no focal deficits ) Assessment and Plan Assessment and Plan Last Resulted 04/19/16 05:50 Red Blood Count 3.59, Mean Corpuscular Volume 94.2, Mean Corpuscular Hemoglobin 30.9, Mean Corpuscular Hemoglobin Concent 32.8, Mean Platelet Volume 9.5, Neutrophils (%) (Auto) 59.5, Lymphocytes (%) (Auto) 22.5, Monocytes (%) (Auto) 12.1, Eosinophils (%) (Auto) 4.0, Basophils (%) (Auto) 1.5, Neutrophils # (Auto ) 2.85, Lymphocytes # (Auto) 1.08, Monocytes # (Auto) 0.58, Eosinophils # (Auto ) 0.19, Basophils # (Auto) 0.07 Last Resulted 04/18/16 09:50 Past 24 Hours Test 04/19/16 05:50 Range/Units Prothromb Time International Ratio 2.1 H 0.9-1.1 Prothrombin Time 22.8 H 9.0-12.0 SECONDS Impression: 55 year old female who presented after a mechanical fall 1. POD 4 s/p ORIF Left Subcapital Hip Fx with 7.3 Cannulated Screws. 2. Nondisplaced Left Olecranon Fx - Splint/Sling 3. History of endocarditis, mechanical Mitral Valve replacement 4. H/o HIV for which she is on HAART therapy Plan: INR has trended up to 2.1 Goal for mechanical MVR is 2.5-3.5, but given potential for bleeding risk, it is reasonable to DC the heparin bridge (already off prior to my arrival). Continue Coumadin 4 mg until INR greater than or = to 2.5, then reduce to home dose of 2 mg daily. Patient is from [place], [place], plans to recovery locally with family for a few weeks. Recommend referral to the [facility] clinic with plan for INR on Thursday. Stable for Discharge from cardio perspective if follow up of INR can be arranged. Case discussed with Dr Garcia. Laboratory Results Last 24 Hours Test 04/19/16 05:50 White Blood Count 4.79 K/uL Red Blood Count 3.59 M/uL Hemoglobin 11.1 g/dL Hematocrit 33.8 % Mean Corpuscular Volume 94.2 fL Mean Corpuscular Hemoglobin 30.9 pg Mean Corpuscular Hemoglobin Concent 32.8 g/dl Platelet Count 248 K/uL Mean Platelet Volume 9.5 fL Neutrophils (%) (Auto) 59.5 % Lymphocytes (%) (Auto) 22.5 % Monocytes (%) (Auto) 12.1 % Eosinophils (%) (Auto) 4.0 % Basophils (%) (Auto) 1.5 % Neutrophils # (Auto) 2.85 K/uL Lymphocytes # (Auto) 1.08 K/uL Monocytes # (Auto) 0.58 K/uL Eosinophils # (Auto) 0.19 K/uL Basophils # (Auto) 0.07 K/uL RDW Standard Deviation 48.6 fL RDW Coefficient of Variation 14.1 % Immature Granulocyte % (Auto) 0.4 % Immature Granulocyte # (Auto) 0.02 K/uL Prothrombin Time 22.8 SECONDS Prothromb Time International Ratio 2.1 Activated Partial Thromboplast Time 66.1 SECONDS Partial Thromboplastin Ratio 2.5
--- NOTE | 2016-04-19 11:12 | Cardiology Progress Note ---
Cardiology Progress Note Patient has decided to remain in hospital pending when a rehab bed becomes available. Therefore resume heparin, no loading bolus. Continue coumadin. Monitor INR closely at rehab, for goal of 2.5 -3.5 Lacey. DO Sheng
[2016-04-19] MEDS: OXYCODONE HCL IR 5 MG TAB (IMMEDIATE RELEASE) PO PRN ×2 (13:50→19:36)
[2016-04-19 15:13] VITALS: BP 95/58; PULSE 81; TEMP 36.7; O2SAT 97
[2016-04-19] MEDS: WARFARIN SOD 4 MG TAB PO SCH (15:58)
--- NOTE | 2016-04-19 17:26 | Progress Note ---
Internal Med Progress Note Date of Service: Apr 19, 2016. Provider Documentation: SUBJECTIVE: Patient is interviewed and examined at bedside. No significant change from yesterday. Had PT this morning. Denies any chest pain, SOB. OBJECTIVE: Vital Signs-as noted below General Appearance: WD/WN, no apparent distress Eyes: normal inspection, PERRL, EOMI, sclerae normal, funduscopic exam normal ENT: normal ENT inspection, hearing grossly normal, TMs normal, pharynx normal Neck: supple, thyroid normal, no JVD, no carotid bruits, trachea midline Respiratory/Chest: chest non-tender, lungs clear, normal breath sounds, no respiratory distress, no accessory muscle use Cardiovascular: regular rate, rhythm, no edema, no gallop, no JVD, no murmur, + pertinent finding (Metallic S2) Abdomen: normal bowel sounds, non tender, soft, no organomegaly, no pulsatile mass Extremities: normal inspection, no pedal edema, no calf tenderness, normal capillary refill, + pertinent finding (Left elbow in sling, left hip mild tender ) 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 ASSESSMENT & PLAN: Left minimally displaced subcapital hip fracture and Left nondisplaced olecranon fracture H/O Osteoporosis Fracture after mechanical fall S/P ORIF of left hip fracture and closed treatment left olecranon fracture with posterior splint and sling, POD # 4 Orthopedics managing above condition Pain control, Continue Bowel regimen for constipation, encourage ambulation PT/OT Awaiting for rehab placement Mechanical Mitral Valve: ECHO with MV which is functioning appropriately Cardiology following Obtain records from in mold coater's office in [place], Dr. Maldonado. 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 Stable, Currently no decompensation Vitamin D deficiency: Continue Vit D supplements H/O HIV disease Continue Atripla DVT px: On IV Heparin and Coumadin Disposition: Likely planned to be discharged to rehab if bed available in AM Vital Signs: Date Time Temp Pulse Resp B/P Pulse Ox O2 Delivery O2 Flow Rate FiO2 04/19/16 15:13 36.7 81 18 95/58 97 Room Air 04/19/16 08:06 Room Air 04/19/16 07:09 36.6 74 18 104/64 97 Room Air 04/19/16 03:44 36.6 74 18 100/63 98 Room Air 04/18/16 23:03 36.6 78 18 100/62 98 Room Air 04/18/16 19:45 Room Air Lab Results: Results Past 24 Hours Test 04/19/16 05:50 Range/Units White Blood Count 4.79 4.8-10.8 K/uL Red Blood Count 3.59 4.2-5.4 M/uL Hemoglobin 11.1 12.0-16.0 g/dL Hematocrit 33.8 37-47 % Mean Corpuscular Volume 94.2 80-100 fL Mean Corpuscular Hemoglobin 30.9 25-34 pg Mean Corpuscular Hemoglobin Concent 32.8 32-36 g/dl Platelet Count 248 130-400 K/uL Mean Platelet Volume 9.5 7.4-10.4 fL Neutrophils (%) (Auto) 59.5 % Lymphocytes (%) (Auto) 22.5 % Monocytes (%) (Auto) 12.1 % Eosinophils (%) (Auto) 4.0 % Basophils (%) (Auto) 1.5 % Neutrophils # (Auto) 2.85 1.4-6.5 K/uL Lymphocytes # (Auto) 1.08 1.2-3.4 K/uL Monocytes # (Auto) 0.58 0.11-0.59 K/uL Eosinophils # (Auto) 0.19 0-0.5 K/uL Basophils # (Auto) 0.07 0-0.2 K/uL RDW Standard Deviation 48.6 36.4-46.3 fL RDW Coefficient of Variation 14.1 11.5-14.5 % Immature Granulocyte % (Auto) 0.4 % Immature Granulocyte # (Auto) 0.02 0.00-0.02 K/uL Prothrombin Time 22.8 9.0-12.0 SECONDS Prothromb Time International Ratio 2.1 0.9-1.1 Activated Partial Thromboplast Time 66.1 21.0-31.0 SECONDS Partial Thromboplastin Ratio 2.5
[2016-04-19] MEDS: TENOFO PO SCH (17:34)
[2016-04-19] MEDS: EMTRICITABINE PO SCH (17:34)
[2016-04-19] MEDS: EFAVIRENZ PO SCH (17:34)
[2016-04-19] MEDS: HEPARIN 25,000 UNIT/500ML D5W 500 ML IV PRN ×2 (17:56→18:59)
[2016-04-19 17:59] LABS: PARTIAL THROMBOPLASTIN RATIO 2.4
[2016-04-19] MEDS: SENNA 8.6 MG TAB PO SCH (20:43)
[2016-04-19 23:36] VITALS: BP 101/59; PULSE 81; TEMP 36.7; O2SAT 97
[2016-04-20] MEDS ORDERED: COUGH DROP (SUGAR FREE) LOZ 24 LOZ/1 BOX ONE (02:38)
[2016-04-20] MEDS: OXYCODONE HCL IR 5 MG TAB (IMMEDIATE RELEASE) PO PRN ×3 (02:41→21:18)
[2016-04-20 06:48] LABS: BASO % 1.7 %; BASO ABS # 0.08 K/uL (0-0.2); COMPLETE YES; EOS % 3.4 %; HEMATOCRIT 33.6 % (37-47); IG% 0.4 %; LYMPH % 22.5 %; LYMPH ABS # 1.06 K/uL (1.2-3.4); MEAN CELL VOLUME 94.4 fL (80-100); MEAN CORPUSCULAR HEMOGLOBIN 30.9 pg (25-34); MEAN CORPUSCULAR HGB CONC 32.7 g/dl (32-36); MEAN PLATELET VOLUME 9.4 fL (7.4-10.4); MONO % 12.9 %; NEUT % 59.1 %; PLATELET COUNT 256 K/uL (130-400); RED BLOOD COUNT 3.56 M/uL (4.2-5.4); WHITE BLOOD COUNT 4.72 K/uL (4.8-10.8)
[2016-04-20 06:55] LABS: INR 2.4 (0.9-1.1); PROTHROMBIN TIME (PATIENT) 26.8 SECONDS (9.0-12.0)
[2016-04-20] MEDS: HEPARIN 25,000 UNIT/500ML D5W 500 ML IV PRN ×2 (07:04→10:17)
[2016-04-20 07:12] VITALS: BP 102/62; PULSE 65; TEMP 36.8; O2SAT 98
--- NOTE | 2016-04-20 07:26 | Orthopedic Progress Note ---
Orthopedic Progress Note Date of Service Apr 20, 2016. Subjective Post OP Day: 5 Reports: feeling well, pain controlled w PO medications, Denies: SOB, calf pain , chest pain, complaints, light headedness, nausea / vomiting Objective calves soft nontender, N/V intact, splint C/D/I (left elbow), capillary refill less than 2 sec., dressing C/D/I, incision C/D/I, toes mobile Date Time Temp Pulse Resp B/P Pulse Ox O2 Delivery O2 Flow Rate FiO2 04/20/16 07:12 36.8 65 16 102/62 98 Room Air 04/19/16 23:36 36.7 81 18 101/59 97 Room Air 04/19/16 19:45 Room Air 04/19/16 15:13 36.7 81 18 95/58 97 Room Air 04/19/16 08:06 Room Air Laboratory Results 24 Hours: Test 04/20/16 05:45 White Blood Count 4.72 K/uL Red Blood Count 3.56 M/uL Hemoglobin 11.0 g/dL Hematocrit 33.6 % Mean Corpuscular Volume 94.4 fL Mean Corpuscular Hemoglobin 30.9 pg Mean Corpuscular Hemoglobin Concent 32.7 g/dl Platelet Count 256 K/uL Mean Platelet Volume 9.4 fL Neutrophils (%) (Auto) 59.1 % Lymphocytes (%) (Auto) 22.5 % Monocytes (%) (Auto) 12.9 % Eosinophils (%) (Auto) 3.4 % Basophils (%) (Auto) 1.7 % Neutrophils # (Auto) 2.79 K/uL Lymphocytes # (Auto) 1.06 K/uL Monocytes # (Auto) 0.61 K/uL Eosinophils # (Auto) 0.16 K/uL Basophils # (Auto) 0.08 K/uL Prothromb Time International Ratio 2.4 Prothrombin Time 26.8 SECONDS Assessment & Plan Assessment: POD 5 s/p ORIF Left Subcapital Hip Fx with 7.3 Cannulated Screws. Nondisplaced Left Olecranon Fx - Splint/Sling H/O HIV Heart Valve Replacement on chronic Coumadin Plan: PT/OT - TTWB; Ambulation improving. DVT Prophylaxis - Heparin/Coumadin Pain management - dc Percocet. Change to OxyIR q4h INR now therapeutic, will discuss w/ SS poss [facility] placement. discussed with patient, her daughter feels she will need rehab, after discussing w/ patient, she will be at home alone for most of the day, has a dog to care for. recommend rehab placement, will discuss further with SS. Discharge Planning Discharge Planning: uncertain
[2016-04-20 08:03] LABS: PARTIAL THROMBOPLASTIN RATIO 7.9
[2016-04-20] MEDS: MULTIVITAMIN TAB PO SCH (08:49)
[2016-04-20] MEDS: PANTOprazole SOD 40 MG TAB PO SCH (08:49)
[2016-04-20] MEDS: BOOST PLUS VANILLA PO SCH ×4 (08:50→17:50)
[2016-04-20] MEDS: DOCUSATE SODIUM 100 MG CAP PO SCH ×2 (08:50→21:17)
[2016-04-20] MEDS: CALCIUM 600MG + VIT D 400 IU TAB PO SCH ×2 (08:50→21:17)
--- NOTE | 2016-04-20 10:52 | Cardiology Follow-Up ---
Subjective General Date of Service: Apr 20, 2016. Chief Complaint: follow up mechanical mitral valve Pt evaluation today including: conversation w/ patient, physical exam History of Present Illness The patient is a 55 year old female seen in follow up. She had no cardiac complaints. She is eager to be transferred to rehab. She is not on telemetry. Allergies Coded Allergies: Morphine (Verified Allergy, Intermediate, hives, 04/14/16) Social History Smoking Status: Never Smoker Hx Tobacco Use In Past Year?: No Hx Alcohol Use - Type And Amou: No Hx Substance Use - Type And Am: No Physical Exam Vital Signs Last Vital Signs Documentation Date Time Temp Pulse Resp B/P Pulse Ox O2 Delivery O2 Flow Rate FiO2 04/20/16 08:15 Room Air 04/20/16 07:12 36.8 65 16 102/62 98 04/16/16 15:02 2.0 Physical Exam Constitutional: Level of Distress: NAD Neck: supple Lungs: Auscultation: pertinent finding (Clear to ausculation) Cardiovascular: Heart Auscultation: RRR, pertinent finding (crisp prosthetic valve sounds noted) Extremities: no edema Neurologic: Gait & Station: pertinent finding (no focal deficits ) Assessment and Plan Assessment and Plan Past 24 Hours Test 04/20/16 05:45 Range/Units Prothromb Time International Ratio 2.4 H 0.9-1.1 Prothrombin Time 26.8 H 9.0-12.0 SECONDS Impression: 55 year old female who presented after a mechanical fall 1. s/p ORIF Left Subcapital Hip Fx with 7.3 Cannulated Screws. 2. Nondisplaced Left Olecranon Fx - Splint/Sling 3. History of endocarditis, mechanical Mitral Valve replacement 4. H/o HIV for which she is on HAART therapy Plan: INR has trended up to 2.4 Goal for mechanical MVR is 2.5-3.5, and given 2.4 today will DC heparin infusion. Reduce coumadin to home dose of 2 mg daily. Stable for Discharge from cardio perspective if follow up of INR can be arranged. Case discussed with Dr Garcia. Laboratory Results Last 24 Hours Test 04/19/16 17:24 04/20/16 05:45 04/20/16 07:10 04/20/16 09:02 Activated Partial Thromboplast Time 61.6 SECONDS 208.9 SECONDS 53.0 SECONDS Partial Thromboplastin Ratio 2.4 7.9 2.0 White Blood Count 4.72 K/uL Red Blood Count 3.56 M/uL Hemoglobin 11.0 g/dL Hematocrit 33.6 % Mean Corpuscular Volume 94.4 fL Mean Corpuscular Hemoglobin 30.9 pg Mean Corpuscular Hemoglobin Concent 32.7 g/dl Platelet Count 256 K/uL Mean Platelet Volume 9.4 fL Neutrophils (%) (Auto) 59.1 % Lymphocytes (%) (Auto) 22.5 % Monocytes (%) (Auto) 12.9 % Eosinophils (%) (Auto) 3.4 % Basophils (%) (Auto) 1.7 % Neutrophils # (Auto) 2.79 K/uL Lymphocytes # (Auto) 1.06 K/uL Monocytes # (Auto) 0.61 K/uL Eosinophils # (Auto) 0.16 K/uL Basophils # (Auto) 0.08 K/uL RDW Standard Deviation 48.7 fL RDW Coefficient of Variation 14.0 % Immature Granulocyte % (Auto) 0.4 % Immature Granulocyte # (Auto) 0.02 K/uL Prothrombin Time 26.8 SECONDS Prothromb Time International Ratio 2.4
--- NOTE | 2016-04-20 13:25 | Progress Note ---
Internal Med Progress Note Date of Service: Apr 20, 2016. Provider Documentation: SUBJECTIVE: Patient is interviewed and examined at bedside. Patient eager to get discharged to rehab facility. No significant change from yesterday. Denies any chest pain, SOB. OBJECTIVE: Vital Signs-as noted below General Appearance: WD/WN, no apparent distress Eyes: normal inspection, PERRL, EOMI, sclerae normal, funduscopic exam normal ENT: normal ENT inspection, hearing grossly normal, TMs normal, pharynx normal Neck: supple, thyroid normal, no JVD, no carotid bruits, trachea midline Respiratory/Chest: chest non-tender, lungs clear, normal breath sounds, no respiratory distress, no accessory muscle use Cardiovascular: regular rate, rhythm, no edema, no gallop, no JVD, no murmur, + pertinent finding (Metallic S2) Abdomen: normal bowel sounds, non tender, soft, no organomegaly, no pulsatile mass Extremities: normal inspection, no pedal edema, no calf tenderness, normal capillary refill, + pertinent finding (Left elbow in sling, left hip mild tender ) 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 ASSESSMENT & PLAN: Left minimally displaced subcapital hip fracture and Left nondisplaced olecranon fracture H/O Osteoporosis Fracture after mechanical fall S/P ORIF of left hip fracture and closed treatment left olecranon fracture with posterior splint and sling, POD #5 Orthopedics managing above condition Pain control, Continue Bowel regimen for constipation, encourage ambulation PT/OT Awaiting for rehab placement: Needs Insurance approval Mechanical Mitral Valve: ECHO with MV which is functioning appropriately Cardiology following Obtain records from loft worker head's office in [place], Dr. Maldonado. 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 Stable, Currently no decompensation Vitamin D deficiency: Continue Vit D supplements H/O HIV disease Continue Atripla DVT px: INR therapeutic Disposition: Likely planned to be discharged to rehab tomorrow Vital Signs: Date Time Temp Pulse Resp B/P Pulse Ox O2 Delivery O2 Flow Rate FiO2 04/20/16 08:15 Room Air 04/20/16 07:12 36.8 65 16 102/62 98 Room Air 04/19/16 23:36 36.7 81 18 101/59 97 Room Air 04/19/16 19:45 Room Air 04/19/16 15:13 36.7 81 18 95/58 97 Room Air Lab Results: Results Past 24 Hours Test 04/19/16 17:24 04/20/16 05:45 04/20/16 07:10 04/20/16 09:02 Range/Units Activated Partial Thromboplast Time 61.6 208.9 53.0 21.0-31.0 SECONDS Partial Thromboplastin Ratio 2.4 7.9 2.0 White Blood Count 4.72 4.8-10.8 K/uL Red Blood Count 3.56 4.2-5.4 M/uL Hemoglobin 11.0 12.0-16.0 g/dL Hematocrit 33.6 37-47 % Mean Corpuscular Volume 94.4 80-100 fL Mean Corpuscular Hemoglobin 30.9 25-34 pg Mean Corpuscular Hemoglobin Concent 32.7 32-36 g/dl Platelet Count 256 130-400 K/uL Mean Platelet Volume 9.4 7.4-10.4 fL Neutrophils (%) (Auto) 59.1 % Lymphocytes (%) (Auto) 22.5 % Monocytes (%) (Auto) 12.9 % Eosinophils (%) (Auto) 3.4 % Basophils (%) (Auto) 1.7 % Neutrophils # (Auto) 2.79 1.4-6.5 K/uL Lymphocytes # (Auto) 1.06 1.2-3.4 K/uL Monocytes # (Auto) 0.61 0.11-0.59 K/uL Eosinophils # (Auto) 0.16 0-0.5 K/uL Basophils # (Auto) 0.08 0-0.2 K/uL RDW Standard Deviation 48.7 36.4-46.3 fL RDW Coefficient of Variation 14.0 11.5-14.5 % Immature Granulocyte % (Auto) 0.4 % Immature Granulocyte # (Auto) 0.02 0.00-0.02 K/uL Prothrombin Time 26.8 9.0-12.0 SECONDS Prothromb Time International Ratio 2.4 0.9-1.1
[2016-04-20] MEDS: TRAMADOL HCL 50 MG TAB PO PRN (13:33)
[2016-04-20 15:30] VITALS: BP 93/56; PULSE 67; TEMP 36.5; O2SAT 98
[2016-04-20] MEDS: WARFARIN SOD 2 MG TAB PO SCH (15:49)
[2016-04-20] MEDS: EFAVIRENZ PO SCH (17:16)
[2016-04-20] MEDS: TENOFO PO SCH (17:16)
[2016-04-20] MEDS: EMTRICITABINE PO SCH (17:16)
[2016-04-20] MEDS: SENNA 8.6 MG TAB PO SCH (21:17)
[2016-04-20 23:16] VITALS: BP 97/60; PULSE 72; TEMP 36.5; O2SAT 97
[2016-04-21] MEDS: OXYCODONE HCL IR 5 MG TAB (IMMEDIATE RELEASE) PO PRN ×4 (02:51→20:55)
[2016-04-21] MEDS: HYDROmorphone INJ 1 MG/ML SYR IV PRN (03:50)
[2016-04-21 07:10] VITALS: BP 102/59; PULSE 65; TEMP 36.8; O2SAT 98
[2016-04-21 07:50] LABS: BASO ABS # 0.08 K/uL (0-0.2); COMPLETE YES; EOS % 4.7 %; HEMATOCRIT 32.9 % (37-47); IG% 0.2 %; LYMPH % 30.3 %; LYMPH ABS # 1.22 K/uL (1.2-3.4); MEAN CORPUSCULAR HEMOGLOBIN 30.9 pg (25-34); MEAN CORPUSCULAR HGB CONC 32.8 g/dl (32-36); MEAN PLATELET VOLUME 9.6 fL (7.4-10.4); MONO % 13.7 %; NEUT % 49.1 %; PLATELET COUNT 269 K/uL (130-400); WHITE BLOOD COUNT 4.02 K/uL (4.8-10.8)
[2016-04-21 07:56] LABS: INR 2.4 (0.9-1.1); PROTHROMBIN TIME (PATIENT) 26.8 SECONDS (9.0-12.0)
[2016-04-21] MEDS: DOCUSATE SODIUM 100 MG CAP PO SCH ×2 (08:05→20:56)
[2016-04-21] MEDS: CALCIUM 600MG + VIT D 400 IU TAB PO SCH ×2 (08:05→20:56)
[2016-04-21] MEDS: PANTOprazole SOD 40 MG TAB PO SCH (08:05)
[2016-04-21] MEDS: MULTIVITAMIN TAB PO SCH (08:05)
[2016-04-21] MEDS: BOOST PLUS VANILLA PO SCH ×4 (09:38→18:34)
--- NOTE | 2016-04-21 15:08 | Orthopedic Progress Note ---
Orthopedic Progress Note Date of Service Apr 21, 2016. Subjective Post OP Day: 6 Reports: complaints (Only complaint is being frustrated with still being in the hospital. Awaiting insurance approval for [facility]SN[facility].), feeling well, pain controlled w PO medications, Denies: SOB, calf pain, chest pain, light headedness, nausea / vomiting Objective calves soft nontender, N/V intact, capillary refill less than 2 sec., dressing C /D/I, A&O x3, toes mobile Left thigh is soft. No significant tenderness. LUE in splint. Date Time Temp Pulse Resp B/P Pulse Ox O2 Delivery O2 Flow Rate FiO2 04/21/16 07:50 Room Air 04/21/16 07:10 36.8 65 16 102/59 98 Room Air 04/21/16 03:36 Room Air 04/20/16 23:16 36.5 72 16 97/60 97 Room Air 04/20/16 15:40 Room Air 04/20/16 15:30 36.5 67 18 93/56 98 Room Air Laboratory Results 24 Hours: Test 04/21/16 06:28 White Blood Count 4.02 K/uL Red Blood Count 3.50 M/uL Hemoglobin 10.8 g/dL Hematocrit 32.9 % Mean Corpuscular Volume 94.0 fL Mean Corpuscular Hemoglobin 30.9 pg Mean Corpuscular Hemoglobin Concent 32.8 g/dl Platelet Count 269 K/uL Mean Platelet Volume 9.6 fL Neutrophils (%) (Auto) 49.1 % Lymphocytes (%) (Auto) 30.3 % Monocytes (%) (Auto) 13.7 % Eosinophils (%) (Auto) 4.7 % Basophils (%) (Auto) 2.0 % Neutrophils # (Auto) 1.97 K/uL Lymphocytes # (Auto) 1.22 K/uL Monocytes # (Auto) 0.55 K/uL Eosinophils # (Auto) 0.19 K/uL Basophils # (Auto) 0.08 K/uL Prothromb Time International Ratio 2.4 Prothrombin Time 26.8 SECONDS Assessment & Plan Assessment: POD 6 s/p ORIF Left Subcapital Hip Fx with 7.3 Cannulated Screws. Nondisplaced Left Olecranon Fx - Splint/Sling H/O HIV Heart Valve Replacement on chronic Coumadin Plan: PT/OT - TTWB; Ambulation improving. DVT Prophylaxis - Heparin/Coumadin Pain management - dc Percocet. Change to OxyIR q4h INR now therapeutic, will discuss w/ SS poss [facility] placement. Awaiting insurance approval for [facility]. She had therapy this AM so the updated note will need to go to her insurance to give approval. If approved today, she may be discharged. D/C may be tomorrow. Inhouse Planning Pain Management: Ultram, Dilaudid, Oxy IR DVT Prophylaxis: TEDs, SCDs, Coumadin, Heparin Drip Discharge Planning Discharge Planning: uncertain
[2016-04-21 15:16] VITALS: BP 86/49; PULSE 71; TEMP 36.8; O2SAT 98
[2016-04-21] MEDS: WARFARIN SOD 2 MG TAB PO SCH (15:42)
[2016-04-21] MEDS: TENOFO PO SCH (17:23)
[2016-04-21] MEDS: EFAVIRENZ PO SCH (17:23)
[2016-04-21] MEDS: EMTRICITABINE PO SCH (17:23)
[2016-04-21 19:18] VITALS: BP 97/61
--- NOTE | 2016-04-21 19:30 | Progress Note ---
Internal Med Progress Note Date of Service: Apr 21, 2016. Provider Documentation: SUBJECTIVE: Patient is interviewed and examined at bedside. No significant change from yesterday. Denies any chest pain, SOB. Awaiting for placement. OBJECTIVE: Vital Signs-as noted below General Appearance: WD/WN, no apparent distress Eyes: normal inspection, PERRL, EOMI, sclerae normal, funduscopic exam normal ENT: normal ENT inspection, hearing grossly normal, TMs normal, pharynx normal Neck: supple, thyroid normal, no JVD, no carotid bruits, trachea midline Respiratory/Chest: chest non-tender, lungs clear, normal breath sounds, no respiratory distress, no accessory muscle use Cardiovascular: regular rate, rhythm, no edema, no gallop, no JVD, no murmur, + pertinent finding (Metallic S2) Abdomen: normal bowel sounds, non tender, soft, no organomegaly, no pulsatile mass Extremities: normal inspection, no pedal edema, no calf tenderness, normal capillary refill, + pertinent finding (Left elbow in sling, left hip mild tender ) 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 ASSESSMENT & PLAN: Left minimally displaced subcapital hip fracture and Left nondisplaced olecranon fracture H/O Osteoporosis Fracture after mechanical fall S/P ORIF of left hip fracture and closed treatment left olecranon fracture with posterior splint and sling, POD #6 Orthopedics managing above condition Pain control, Continue Bowel regimen for constipation, encourage ambulation PT/OT Awaiting for rehab placement: Needs Insurance approval Mechanical Mitral Valve: ECHO with MV which is functioning appropriately Appreciate Cardiology help Obtain records from sheet heater helper's office in [place], Dr. Maldonado. 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 Stable, Currently no decompensation Vitamin D deficiency: Continue Vit D supplements H/O HIV disease Continue Atripla DVT px: INR therapeutic Disposition: Awaiting for placement Vital Signs: Date Time Temp Pulse Resp B/P Pulse Ox O2 Delivery O2 Flow Rate FiO2 04/21/16 19:18 97/61 04/21/16 15:20 Room Air 04/21/16 15:16 36.8 71 18 86/49 98 Room Air 04/21/16 07:50 Room Air 04/21/16 07:10 36.8 65 16 102/59 98 Room Air 04/21/16 03:36 Room Air 04/20/16 23:16 36.5 72 16 97/60 97 Room Air Lab Results: Results Past 24 Hours Test 04/21/16 06:28 Range/Units White Blood Count 4.02 4.8-10.8 K/uL Red Blood Count 3.50 4.2-5.4 M/uL Hemoglobin 10.8 12.0-16.0 g/dL Hematocrit 32.9 37-47 % Mean Corpuscular Volume 94.0 80-100 fL Mean Corpuscular Hemoglobin 30.9 25-34 pg Mean Corpuscular Hemoglobin Concent 32.8 32-36 g/dl Platelet Count 269 130-400 K/uL Mean Platelet Volume 9.6 7.4-10.4 fL Neutrophils (%) (Auto) 49.1 % Lymphocytes (%) (Auto) 30.3 % Monocytes (%) (Auto) 13.7 % Eosinophils (%) (Auto) 4.7 % Basophils (%) (Auto) 2.0 % Neutrophils # (Auto) 1.97 1.4-6.5 K/uL Lymphocytes # (Auto) 1.22 1.2-3.4 K/uL Monocytes # (Auto) 0.55 0.11-0.59 K/uL Eosinophils # (Auto) 0.19 0-0.5 K/uL Basophils # (Auto) 0.08 0-0.2 K/uL RDW Standard Deviation 48.1 36.4-46.3 fL RDW Coefficient of Variation 14.0 11.5-14.5 % Immature Granulocyte % (Auto) 0.2 % Immature Granulocyte # (Auto) 0.01 0.00-0.02 K/uL Prothrombin Time 26.8 9.0-12.0 SECONDS Prothromb Time International Ratio 2.4 0.9-1.1
[2016-04-21] MEDS ORDERED: WARFARIN SOD 1 MG TAB PO ONE (19:45)
[2016-04-21] MEDS: SENNA 8.6 MG TAB PO SCH (20:56)
[2016-04-21] MEDS: TRAMADOL HCL 50 MG TAB PO PRN (23:18)
[2016-04-21 23:45] VITALS: BP_SYST 94; BP_SYST 96; BP_DIAS 46; BP_DIAS 54; PULSE 70; TEMP 36.8; O2SAT 96
[2016-04-22] MEDS: OXYCODONE HCL IR 5 MG TAB (IMMEDIATE RELEASE) PO PRN ×3 (03:49→21:10)
[2016-04-22 05:51] LABS: INR 2.3 (0.9-1.1); PROTHROMBIN TIME (PATIENT) 25.2 SECONDS (9.0-12.0)
[2016-04-22 07:28] VITALS: BP 87/47; PULSE 60; TEMP 36.8; O2SAT 98
[2016-04-22 07:40] VITALS: BP 91/59
--- NOTE | 2016-04-22 08:07 | Orthopedic Progress Note ---
Orthopedic Progress Note Date of Service Apr 22, 2016. Subjective Post OP Day: 7 Additional Notes: No complaints. Hoping to go to N or home today. Objective calves soft nontender, N/V intact, splint C/D/I (LUE), dressing C/D/I, A&O x3, toes mobile Date Time Temp Pulse Resp B/P Pulse Ox O2 Delivery O2 Flow Rate FiO2 04/22/16 07:28 36.8 60 16 87/47 98 Room Air 04/21/16 23:45 36.8 70 16 94/54 96 Room Air 04/21/16 23:15 Room Air 04/21/16 19:18 97/61 04/21/16 15:20 Room Air 04/21/16 15:16 36.8 71 18 86/49 98 Room Air Laboratory Results 24 Hours: Test 04/22/16 05:20 Prothromb Time International Ratio 2.3 Prothrombin Time 25.2 SECONDS Assessment & Plan Assessment: POD 7 s/p ORIF Left Subcapital Hip Fx with 7.3 Cannulated Screws. Nondisplaced Left Olecranon Fx - Splint/Sling H/O HIV Heart Valve Replacement on chronic Coumadin Plan: PT/OT - TTWB; DVT Prophylaxis - Heparin/Coumadin Pain management - OxyIR q4h INR now therapeutic Awaiting insurance approval for [facility]. Inhouse Planning Pain Management: Ultram, Dilaudid, Oxy IR DVT Prophylaxis: TEDs, SCDs, Coumadin, Heparin Drip Discharge Planning Discharge Planning: uncertain
[2016-04-22] MEDS: CALCIUM 600MG + VIT D 400 IU TAB PO SCH ×2 (08:42→21:11)
[2016-04-22] MEDS: PANTOprazole SOD 40 MG TAB PO SCH (08:42)
[2016-04-22] MEDS: MULTIVITAMIN TAB PO SCH (08:43)
[2016-04-22] MEDS: DOCUSATE SODIUM 100 MG CAP PO SCH ×2 (08:43→21:11)
[2016-04-22] MEDS: BOOST PLUS VANILLA PO SCH ×4 (08:45→18:07)
[2016-04-22 15:25] VITALS: BP 90/51; PULSE 69; TEMP 36.7; O2SAT 97
[2016-04-22] MEDS: WARFARIN SOD 2 MG TAB PO SCH (15:44)
--- NOTE | 2016-04-22 17:01 | Progress Note ---
Medicine Progress Note Date & Time of Visit: Apr 22, 2016 at 16:51. Subjective Patient seen and examined. Expresses frustration regarding length of hospital stay. Objective Last 8 Hrs Date Time Temp Pulse Resp B/P Pulse Ox O2 Delivery O2 Flow Rate FiO2 04/22/16 15:25 36.7 69 16 90/51 97 Physical Exam: General-awake; alert; NAD Eyes-EOMI; no scleral icterus Neck-no stridor; trachea midline Lungs-CTA bilaterally; no wheezes/crackles Heart-RRR; no m/r/g Abdomen-soft; NTND; nBS Extremities-left arm in soft cast and sling; left hip bandage c/d/i Neuro-no gross focal deficits Laboratory Results: Last 24 Hours Test 04/22/16 05:20 Prothrombin Time 25.2 SECONDS Prothromb Time International Ratio 2.3 Assessment & Plan Left minimally displaced subcapital hip fracture and Left nondisplaced olecranon fracture H/O Osteoporosis Fracture after mechanical fall S/P ORIF of left hip fracture and left olecranon splint and sling ( 04/15/16) Orthopedics managing Pain control, Bowel regimen PT/OT Awaiting rehab placement: Needs Insurance approval Mechanical Mitral Valve: ECHO with MV which is functioning appropriately Cardiology consulted INR near therapeutic Continue Coumadin H/O CHF secondary to 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 Stable, Currently no decompensation Vitamin D deficiency: Continue Vit D supplements H/O HIV disease Continue Atripla DVT prophylaxis with Coumadin Disposition: Awaiting placement at [facility] Current Inpatient Medications: Current Inpatient Medications Medications (Trade) Dose Ordered Sig/[place] Route Start Time Stop Time Status Last Admin Dose Admin Calcium/Vitamin D (Caltrate Plus Tab) 1 tab BID PO 04/15/16 09:00 05/15/16 08:59 04/22/16 08:42 1 TAB Tramadol HCl (Ultram Tab) 25 mg Q6H PRN PO 04/14/16 23:45 05/14/16 23:44 04/21/16 23:18 25 MG Hydromorphone HCl (Dilaudid Inj) 0.25 mg Q3H PRN IV 04/14/16 23:45 04/21/16 03:50 0.25 MG Ondansetron HCl (Zofran Inj) 4 mg Q6H PRN IV 04/14/16 23:45 05/14/16 23:44 Lorazepam (Ativan Inj) 0.25 mg Q4H PRN IV 04/14/16 23:45 05/14/16 23:44 Hydroxyzine HCl (Vistaril Tab) 10 mg Q6H PRN PO 04/14/16 23:45 05/14/16 23:44 Docusate Sodium (coLACE CAP) 100 mg BID PO 04/15/16 09:00 05/15/16 08:59 04/22/16 08:43 100 MG Multivitamins (Multivitamin Tab) 1 tab QAM PO 04/15/16 09:00 05/15/16 08:59 04/22/16 08:43 1 TAB Diphenhydramine HCl 25 mg 25 mg Q6H PRN PO 04/15/16 02:30 05/15/16 02:29 04/21/16 23:17 25 MG Lorazepam/Syringe (Ativan Inj/ Syringe) 0.25 ml @ 1 mls/min Q4H PRN IV 04/15/16 02:30 05/15/16 02:29 Enteral Nutritional Formula (Boost Plus Vanilla) 1 can BIDM PO 04/15/16 17:00 05/15/16 16:59 04/22/16 08:45 1 CAN Magnesium Hydroxide (Milk Of Magnesia Susp) 30 ml Q6H PRN PO 04/15/16 15:00 05/15/16 14:59 Bisacodyl (Dulcolax Supp) 10 mg DAILY PRN AL 04/15/16 15:00 05/15/16 14:59 Sodium Biphosphate/ Sodium Phosphate (Fleet Enema) 132 ml DAILY PRN AL 04/15/16 15:00 05/15/16 14:59 Diphenhydramine HCl (Benadryl Inj) 25 mg Q8H PRN IV 04/15/16 15:00 05/15/16 14:59 Pantoprazole Sodium (Protonix Tab) 40 mg QAM PO 04/16/16 09:00 05/16/16 08:59 04/22/16 08:42 40 MG Ergocalciferol (Vitamin D Cap) 50,000 interunit We@1415 PO 04/16/16 14:15 05/16/16 14:14 04/16/16 18:37 50,000 INTERUNIT Oxycodone HCl (Roxicodone Immediate Rel Tab) @ Q4HWA PRN PO 04/16/16 16:45 04/30/16 16:44 04/22/16 15:46 5 MG Efavirenz/ Emtricitabine/ Tenofovir (Atripla) 1 tab DAILYBD PO 04/16/16 18:42 05/16/16 18:41 04/21/16 17:23 1 TAB Senna (Senokot Tab) 17.2 mg HS PO 04/18/16 21:00 05/18/16 20:59 04/21/16 20:56 17.2 MG Acetaminophen (Tylenol Tab) 650 mg Q4H PRN PO 04/18/16 22:00 05/18/16 21:59 Warfarin Sodium (Coumadin Tab) 2 mg DAILY@16 PO 04/20/16 16:00 05/20/16 15:59 04/22/16 15:44 2 MG
[2016-04-22] MEDS: TENOFO PO SCH (18:06)
[2016-04-22] MEDS: EFAVIRENZ PO SCH (18:06)
[2016-04-22] MEDS: EMTRICITABINE PO SCH (18:06)
[2016-04-22] MEDS: SENNA 8.6 MG TAB PO SCH (21:11)
[2016-04-22] MEDS: HYDROmorphone INJ 1 MG/ML SYR IV PRN (23:35)
[2016-04-22 23:50] VITALS: BP 97/59; PULSE 65; TEMP 36.5; O2SAT 96
[2016-04-23] MEDS: OXYCODONE HCL IR 5 MG TAB (IMMEDIATE RELEASE) PO PRN ×2 (05:51→14:35)
[2016-04-23 05:56] VITALS: BP 92/47; PULSE 56; TEMP 36.4; O2SAT 95
[2016-04-23 08:07] LABS: HEMATOCRIT 32.2 % (37-47); MEAN CORPUSCULAR HEMOGLOBIN 30.7 pg (25-34); MEAN CORPUSCULAR HGB CONC 32.3 g/dl (32-36); MEAN PLATELET VOLUME 9.1 fL (7.4-10.4); PLATELET COUNT 306 K/uL (130-400); RED BLOOD COUNT 3.39 M/uL (4.2-5.4); WHITE BLOOD COUNT 5.05 K/uL (4.8-10.8)
[2016-04-23 08:14] LABS: INR 2.4 (0.9-1.1); PROTHROMBIN TIME (PATIENT) 27.2 SECONDS (9.0-12.0)
[2016-04-23] MEDS: PANTOprazole SOD 40 MG TAB PO SCH (08:35)
[2016-04-23] MEDS: CALCIUM 600MG + VIT D 400 IU TAB PO SCH (08:35)
[2016-04-23] MEDS: MULTIVITAMIN TAB PO SCH (08:35)
[2016-04-23] MEDS: BOOST PLUS VANILLA PO SCH ×2 (08:35)
[2016-04-23] MEDS: DOCUSATE SODIUM 100 MG CAP PO SCH (08:35)
[2016-04-23 09:11] VITALS: BP 92/53; PULSE 79
--- NOTE | 2016-04-23 09:16 | Orthopedic Progress Note ---
Orthopedic Progress Note Date of Service Apr 23, 2016. Subjective Post OP Day: 8 Reports: feeling well, Denies: SOB, chest pain, complaints, nausea / vomiting Objective N/V intact, splint C/D/I, incision C/D/I, A&O x3, toes mobile Patient was observed ambulating in the hallway. She was able to walk around the unit with little pain. Date Time Temp Pulse Resp B/P Pulse Ox O2 Delivery O2 Flow Rate FiO2 04/23/16 05:56 36.4 56 16 92/47 95 Room Air 04/22/16 23:50 36.5 65 16 97/59 96 Room Air 04/22/16 23:40 Room Air 04/22/16 16:45 Room Air 04/22/16 15:25 36.7 69 16 90/51 97 Laboratory Results 24 Hours: Test 04/23/16 06:57 Hematocrit 32.2 % Hemoglobin 10.4 g/dL Prothromb Time International Ratio 2.4 Prothrombin Time 27.2 SECONDS Assessment & Plan Assessment: POD 8 s/p ORIF Left Subcapital Hip Fx with 7.3 Cannulated Screws. Nondisplaced Left Olecranon Fx - Splint/Sling H/O HIV Heart Valve Replacement on chronic Coumadin Plan: PT/OT - TTWB; DVT Prophylaxis - Heparin/Coumadin Pain management - OxyIR q4h INR now therapeutic Awaiting insurance approval for [facility]. If not approved, plan to D/C home with daughter and home services. Inhouse Planning Pain Management: Ultram, Dilaudid, Oxy IR DVT Prophylaxis: TEDs, SCDs, Coumadin, Heparin Drip Discharge Planning Discharge Planning: uncertain (awaiting insurance approval for [facility]SN[facility].)
[2016-04-23] MEDS ORDERED: EFAVTAB PO (11:38)
[2016-04-23] MEDS ORDERED: CLC100 PO (11:38)
[2016-04-23] MEDS ORDERED: CALCTAB7 PO (11:38)
[2016-04-23] MEDS ORDERED: WARF1TAB PO (11:38)
[2016-04-23] MEDS ORDERED: MULT-589 PO (11:38)
[2016-04-23] MEDS ORDERED: VTMD PO (11:38)
[2016-04-23] MEDS ORDERED: SNK PO (11:38)
[2016-04-23 13:59] VITALS: BP 92/53; PULSE 79; TEMP 36.4; O2SAT 95
[2016-04-23] MEDS: WARFARIN SOD 2 MG TAB PO SCH (14:34)
[2016-04-23] MEDS: ERGOCALCIFEROL 50,000 INTER.UNIT CAP PO SCH (14:57)
--- NOTE | 2016-04-23 19:35 | Progress Note ---
Medicine Progress Note Date & Time of Visit: Apr 23, 2016 at 19:32. Subjective Patient seen and examined. Insurance denied [facility]. Plans to live with daughter with home health. Objective Last 8 Hrs Date Time Temp Pulse Resp B/P Pulse Ox O2 Delivery O2 Flow Rate FiO2 04/23/16 13:59 36.4 79 16 95 Room Air Physical Exam: General-awake; alert; NAD Eyes-EOMI; no scleral icterus Neck-no stridor; trachea midline Lungs-CTA bilaterally; no wheezes/crackles Heart-RRR; no m/r/g Abdomen-soft; NTND; nBS Extremities-left arm in soft cast and sling; left svitlana c/d/i Neuro-no gross focal deficits Laboratory Results: Last 24 Hours Test 04/23/16 06:57 White Blood Count 5.05 K/uL Red Blood Count 3.39 M/uL Hemoglobin 10.4 g/dL Hematocrit 32.2 % Mean Corpuscular Volume 95.0 fL Mean Corpuscular Hemoglobin 30.7 pg Mean Corpuscular Hemoglobin Concent 32.3 g/dl RDW Standard Deviation 47.9 fL RDW Coefficient of Variation 13.8 % Platelet Count 306 K/uL Mean Platelet Volume 9.1 fL Prothrombin Time 27.2 SECONDS Prothromb Time International Ratio 2.4 Assessment & Plan Left minimally displaced subcapital hip fracture and Left nondisplaced olecranon fracture H/O Osteoporosis Fracture after mechanical fall S/P ORIF of left hip fracture and left olecranon splint and sling ( 04/15/16) Orthopedics managing Pain control, Bowel regimen PT/OT Mechanical Mitral Valve: ECHO with MV which is functioning appropriately Cardiology consulted INR near therapeutic Continue Coumadin 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
--- NOTE | 2016-05-02 14:42 | Discharge Summary ---
Orthopedic Discharge Summary Admission Date/Reason Apr 14, 2016 at 23:47 Slightly Impacted Subcapital Lft Hip Fx. Discharge Date/Disposition Apr 23, 2016 Home with services Diagnosis Principal Diagnosis: left subcapital hip fx left olecranon fx. Procedure(s) Performed ORIF left hip fx with three 7.3 mm cannulated screws. Consultations Medicine Medication Reconciliation New Medications: Calcium Carbonate-Vitamin D W/ (Caltrate 600 Plus) 1 Tab Tab 1 TAB PO BID for 30 Days, #60 TAB Docusate Sodium (Docusate Sodium) 100 Mg Cap 100 MG PO BID for 30 Days, #60 CAP Ergocalciferol (Vitamin D) 50,000 Interunit Cap 96794 INTERUNIT PO WK for 30 Days, #4 CAP Multivitamins (Daily Erickson) 1 Tab Tab 1 TAB PO QAM for 30 Days, #30 TAB Oxycodone HCl (Oxycodone HCl) 5 Mg Tab 5-10 MG PO Q4HWA PRN for Pain, #60 TAB Senna (Senna Lax) 8.6 Mg Tab 17.2 MG PO HS for 30 Days, #60 TAB Tramadol HCl (Tramadol HCl) 50 Mg Tab 25 MG PO Q6H PRN for Pain, #60 TAB Continued Medications: Mduukeogq-Jhxpyoetpmyma-Oacevg (Atripla) 1 Tab Tab 1 TAB PO DAILY for 30 Days, #30 TAB (This prescription has been renewed) Warfarin Sodium (Coumadin) 1 Mg Tab 2 MG PO DAILY for 30 Days, #60 TAB (This prescription has been renewed) PT CAN NOT TAKE GENERIC COUMADIN. BRAND NECESSARY Admission Physical Exam As per Admitting History & Physical. Hospital Course The patient was admitted on the above date and underwent an ORIF of the left hip fx. Her olecranon fx was treated with a long arm splint. Throughout her stay , she was kept toe touch WB on the LLE. She used a walker with a left platform. She was prepared to be discharged on 04.19.16, however, the patient's daughter felt that it would be difficult for the patient to return home to the [facility] and would also be difficult to care for at her home. A referral to [facility] was made. However, throughout the start of the week of 04.21.16, her PT improved and her insurance company denied a rehabilitation stay. She was later d/c'd to her daughter's home with home health. Discharge Instructions Please refer to the electronic Patient Visit Report (Discharge Instructions) for additional information. [facility] DISCHARGE INSTRUCTIONS: HIP FRACTURE SELF CARE INSTRUCTIONS: A. You are to ambulate with a walker or crutches for approximately 6 weeks. B. You are TOE TOUCH WEIGHT BEARING on your operative lower extremity for at least 6 weeks. C. Wear low heeled shoes with non-slip soles D. Be sure that your floors are free of things that could trip you throw rugs, electrical cords, and small objects. Avoid wet and waxed floors, especially with crutches/walker/cane. E. Try to walk several times a day with rest periods between. F. You may shower 48 hours after surgery and get the incision area wet, but DO NOT soak or submerge incision area in water. (No baths, swimming pools, hot tubs ) G. You may have a large, band-aid like dressing over your incision (Aquacel). This will remain on your incision for 7 days, and then can be removed. You CAN shower with this on. If incision is leaking through the dressing, please call the office . H. Do NOT apply soap or any ointment/lotions directly over incision. I. You may use ice as needed to operative site. SPECIAL CARE INSTRUCTIONS: VERY IMPORTANT TO READ AND REVIEW A. You may be at risk for phlebitis or blood clots. a. Wear surgical stockings (KARINA hose) for 2 weeks after surgery to improve circulation and reduce swelling. b. Take LOVENOX 30mg SQ BID for 4 weeks or as directed. This is your blood thinner. c. If you are on Coumadin- you will have daily/weekly blood work to monitor your levels. This will be done by either your family physician/ restaurant cashier (if you are on Coumadin chronically) versus your orthopedic surgeon. Expect a phone call the day of or the day after your blood work is drawn to adjust your dose accordingly. B. There are a few signs you need to watch for after you are home. Call [facility] at [phone] if you experience any of the following: a. If you have a temperature of 101 degrees or higher. b. Sudden increase in pain in your hip not relieved by rest or pain medication. c. Any fluid or drainage from the incision; redness of the incision. d. Shortness of breath or chest pain. B. Please call [facility] at [phone] if you have any questions or concerns about your operation or recovery. C. Call your physician if: a. Temperature is greater than 101 degrees (F). b. Pain is not relieved by prescribed pain medications. c. Increase drainage or redness from incision. d. Unanswered questions or concerns. D. Pain Medication: a. You will be prescribed pain medication upon discharge that should last till your first post-operative appointment. b. If you experience nausea and/or skin rash, discontinue this medication and contact our office for an alternative medication. c. Caution- narcotic pain medication can cause constipation. FOLLOW UP VISIT: Please call [facility] at [phone] to schedule a follow up appointment 10-14 days from the date of your surgery date.
== END 2016-04-23 15:36 | disposition home health service (06) | DRG 480 ==
LOC: ENRESERVDT → ENRESERVTM → CANRESERV → C.EDC 20:33 → C.MED 23:47 → C.MSN 04-16 15:53
PROVIDERS: ADMIT Orthopaedic Surgery Sports Medicine; ATTEND Orthopaedic Surgery Sports Medicine
PROC: 0RSMXZZ Reposition Left Elbow Joint, External Approach (ICD-10-PCS; principal; 2016-04-15 10:45)
PROC: 0QS704Z Reposition Left Upper Femur with Internal Fixation Device, Open Approach (ICD-10-PCS; principal; 2016-04-15 10:45)
DX: S72.012A Unspecified intracapsular fracture of left femur, initial encounter for closed fracture (principal); S52.022A Displaced fracture of olecranon process without intraarticular extension of left ulna, initial encounter for closed fracture; B20 Human immunodeficiency virus [HIV] disease; E46 Unspecified protein-calorie malnutrition; M81.0 Age-related osteoporosis without current pathological fracture; W10.9XXA Fall (on) (from) unspecified stairs and steps, initial encounter; J45.909 Unspecified asthma, uncomplicated; F17.210 Nicotine dependence, cigarettes, uncomplicated; I50.9 Heart failure, unspecified; E55.9 Vitamin D deficiency, unspecified; Y99.8 Other external cause status; Y93.01 Activity, walking, marching and hiking; Y92.009 Unspecified place in unspecified non-institutional (private) residence as the place of occurrence of the external cause; Z95.2 Presence of prosthetic heart valve

== ENCOUNTER → 2016-05-01 | Outpatient (CLI) | payer OTHER ==
[~2016-05-01] MED LIST: CALCTAB7 PO; CLC100 PO; EFAVTAB PO; MULT-589 PO; RXC5 PO; SNK PO; ULT50X PO; VTMD PO; WARF1TAB PO
[2016-05-01 15:26] LABS: BASO % 1.1 %; BASO ABS # 0.08 K/uL (0-0.2); COMPLETE YES; EOS % 1.1 %; HEMATOCRIT 39.4 % (37-47); IG% 0.3 %; LYMPH % 23.6 %; LYMPH ABS # 1.66 K/uL (1.2-3.4); MEAN CELL VOLUME 93.8 fL (80-100); MEAN CORPUSCULAR HEMOGLOBIN 30.7 pg (25-34); MEAN CORPUSCULAR HGB CONC 32.7 g/dl (32-36); MEAN PLATELET VOLUME 9.2 fL (7.4-10.4); MONO % 8.1 %; NEUT % 65.8 %; PLATELET COUNT 523 K/uL (130-400); WHITE BLOOD COUNT 7.04 K/uL (4.8-10.8)
[2016-05-01 15:44] LABS: INR 1.5 (0.9-1.1); PROTHROMBIN TIME (PATIENT) 16.7 SECONDS (9.0-12.0)
== END | disposition home or self-care (01) ==
LOC: C.LAB1850 14:15
PROVIDERS: ATTEND Nurse Practitioner Adult Health
DX: D64.9 Anemia, unspecified (principal)

== ENCOUNTER → 2016-05-15 | Outpatient (CLI) | payer OTHER ==
[2016-05-15 13:01] LABS: BASO % 1.1 %; BASO ABS # 0.05 K/uL (0-0.2); COMPLETE YES; HEMATOCRIT 39.7 % (37-47); IG% 0.2 %; LYMPH % 31.5 %; LYMPH ABS # 1.44 K/uL (1.2-3.4); MEAN CELL VOLUME 93.6 fL (80-100); MEAN CORPUSCULAR HEMOGLOBIN 30.4 pg (25-34); MEAN CORPUSCULAR HGB CONC 32.5 g/dl (32-36); MEAN PLATELET VOLUME 10.1 fL (7.4-10.4); MONO % 6.8 %; NEUT % 58.4 %; PLATELET COUNT 248 K/uL (130-400); RED BLOOD COUNT 4.24 M/uL (4.2-5.4); WHITE BLOOD COUNT 4.57 K/uL (4.8-10.8)
[2016-05-15 13:10] LABS: INR 1.3 (0.9-1.1); PROTHROMBIN TIME (PATIENT) 13.7 SECONDS (9.0-12.0)
== END | disposition home or self-care (01) ==
LOC: C.LAB1850 11:13
PROVIDERS: ATTEND Nurse Practitioner Adult Health
DX: S72.009A Fracture of unspecified part of neck of unspecified femur, initial encounter for closed fracture (principal); S42.409A Unspecified fracture of lower end of unspecified humerus, initial encounter for closed fracture; X58.XXXA Exposure to other specified factors, initial encounter; D64.9 Anemia, unspecified

== ENCOUNTER → 2016-05-21 | Outpatient (CLI) | payer OTHER ==
[2016-05-21 11:11] LABS: BASO % 1.3 %; BASO ABS # 0.06 K/uL (0-0.2); COMPLETE YES; EOS % 1.9 %; HEMATOCRIT 38.1 % (37-47); IG% 0.2 %; LYMPH % 32.5 %; MEAN CELL VOLUME 92.7 fL (80-100); MEAN CORPUSCULAR HEMOGLOBIN 29.9 pg (25-34); MEAN CORPUSCULAR HGB CONC 32.3 g/dl (32-36); MEAN PLATELET VOLUME 9.8 fL (7.4-10.4); MONO % 7.6 %; NEUT % 56.5 %; PLATELET COUNT 202 K/uL (130-400); RED BLOOD COUNT 4.11 M/uL (4.2-5.4); WHITE BLOOD COUNT 4.62 K/uL (4.8-10.8)
[2016-05-21 11:20] LABS: INR 1.5 (0.9-1.1); PROTHROMBIN TIME (PATIENT) 16.6 SECONDS (9.0-12.0)
== END | disposition home or self-care (01) ==
LOC: C.LAB1850 10:13
PROVIDERS: ATTEND Nurse Practitioner Adult Health
DX: D64.9 Anemia, unspecified (principal); S72.009A Fracture of unspecified part of neck of unspecified femur, initial encounter for closed fracture; M81.0 Age-related osteoporosis without current pathological fracture; X58.XXXA Exposure to other specified factors, initial encounter